=== PATIENT | male | born 1995 | race Caucasian/White ===

== ENCOUNTER 2024-11-08 15:47 | Observation (INO) | payer BC, SELFPAY ==
--- NOTE | ~2024-11-08 | XR_ITS ---
EXAMINATION: XR chest 1V portable Exam Date/Time: 11/08/2024 18:01 CDT HISTORY: Preop Comparison: 10/06/2016. RESULT: Lines, tubes, and devices: None. Lungs and pleura: Clear. Cardiomediastinal silhouette: Stable. Other: No acute osseous or upper abdominal finding. IMPRESSION: No acute cardiopulmonary process. Reviewed, dictated and finalized at location K.
--- OUTSIDE RECORDS SUMMARY | 2024-11-08 15:49 | XMS_ITS | Encounter Summary ---
Author Organization [facility] Address [address] [place] [address] Care Team Providers Care Field Party Manager Name Role Phone Ed Melendez MD Primary Care Provider [phone] Reason for Visit * Reason Onset Date Comments MEDICATION REFILL 12/28/2013 Encounter Details Date Type Department Care Team (Late st Contact Info) Description 12/28/2013 Refill [facility] Pediatrics - Diabetes Mgmt [address] [place] [address] Aleksandar Brar MD [address] [place] [id number] MEDICATION REFILL Social History Tobacco Use Types Packs/Day Years Used Date Smoking Tobacco: Never Alcohol Use Standard Drinks/Week Comments Not Asked 0 (1 standard drink = 0.6 oz pur e alcohol) Sex and Gender Information Value Date Recorded Sex Assigned at Not on file Legal Sex Male 11:46 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
--- OUTSIDE RECORDS SUMMARY | 2024-11-08 15:49 | XMS_ITS | Clinical Summary ---
Author Organization [facility] Address [address] [facility] [place] [address] Care Team Providers Care Hat And Cap Sewer Name Role Phone Ed Melendez MD Primary Care Provider [phone] Source Comments [facility],non-owned Affiliates and Associated Physician Practices is amultiple site organization consisting of ambulatory clinics and hospital sitesin [place], [place], [place] and [place]. This disclosure is being madepursuant to the Care Everywhere program and may not contain all information available regarding this patient. Last updated 18.[facility] Allergies Active Allergy Reactions Criticality Noted Date Comments Gluten 05/26/2011 Medications * Be aware that medications may not be up to date on this document. Alwaysverify current medications with the patient. blood glucose monitoring (FREESTYLE LITE) kitIndications: Diabetes mellitus type 1 (HCC) Use as directed for blood glucose monitoring. 1 Kit 0 1 Active lancets (FREESTYLE LITE)Indication s:Diabetes mellitus type 1 (HCC) Use for blood glucose monitoring 5-9 times/day. 200 Each 11 1 Active blood glucose (FREESTYLE LITE STRIPS) test stripIndication s:Diabetes mellitus type 1 (HCC) Use for blood glucose monitoring 5-9 times/day. 200 Strip 11 1 Active acetone,urine, (KETOSTIX) stripIndication s:Diabetes mellitus type 1 (HCC) Use as directed for urine ketone checks if blood sugar elevated or if ill. 50 Strip 3 1 Active insulin glargine (LANTUS) 100 UNIT/ML injectionIndica tions:Diabetes mellitus type 1 (HCC) Inject 36 units daily or as directed when off insulin pump. 2 Vial 3 10/21/201 1 Active glucagon (GLUCAGON EMERGENCY) injectionIndica tions:Diabetes mellitus type 1 (HCC) Use as directed for severe low blood sugar reaction. 2 Kit 1 2 Active insulin lispro (HUMALOG) vialIndications :Diabetes mellitus type 1 (HCC) To be used in insulin pump. Max daily dose 170 units 6 Vial 2 4 Active Active Problems Problem Noted Date Diagnosed Date Diabetes mellitus type 1 01/25/2012 Overview (06/29/2013): Dx: 2005 Insulin Pump ([place]): 2006 Transfer: 2010 Assessment & Plan (01/15/2014 2:47 PM CDT): 1) in order to optimize diabetes control you must check at least 4 blood sugars per day so that you can correct at least 4 times per day if needed 2) call as needed until first appointment with Adult ball point splitter 3) try proactive for acne 4) try to schedule appointment in 3-4 months, if nothing available schedule for 6 months and then call us to schedule one final appointment for 3 months Assessment & Plan (11/21/2013 9:39 AM CDT): Prior to Transition Visit #3: 1. Determine insurance coverage 2. Choose an Adult Starch Cooker and call their office to discuss items needed for transfer. 3. Begin to: log blood sugars, call diabetes office to review blood sugars, and fill prescriptions on your own (with parent's help, if needed). 4. Download ADA's Going to College With Diabetes: A Guide. Write down any questions and bring them to your next visit. Call [place] Public Aide to discuss the possibility of extending insurance. No changes in dosing per Dr. Brar. Keep up good work! Return to clinic 3 months. Assessment & Plan (04/10/2013 2:14 PM 911 DISPATCHER): 1) increase all ic ratios to 1:5 2) increase ISF to 15 3) call within the week if blood sugars do not return to target range 4) return in [address] Brar Before your next diabetes appointment: 1. Read Just For Teens, Surviving Sick Days, and Sick Day Guidelines. 2. Keep a logbook of your blood sugars and the corresponding times they are taken. 3. [place] blood sugars that are above your target range and highlight the ones that are below your target range. 4. Begin calling the Diabetes Nurse line yourself to review blood sugars [phone] #4. 5. Bring the logbook to your next appointment. 6. Begin to watch how your parents get your prescriptions refilled. Take part in the process! Begin calling in your own refills with your parents' assistance. 7. Write down any questions or topics that you want to discuss and bring them to your next visit. Assessment & Plan (01/19/2013 9:38 AM CDT): 1) resume checking blood sugars with all boluses and always check when you are low 2) call if blood sugars do not return to target range in two weeks 3) return in 3 months for [place] Immunizations Immunization Administration Dates Next Due INFLUENZA VACCINE 04/06/2013,02/09/2011 Social History Tobacco Use Types Packs/Day Years Used Date Smoking Tobacco: Never Alcohol Use Standard Drinks/Week Comments Not Asked 0 (1 standard drink = 0.6 oz pur e alcohol) Sex and Gender Information Value Date Recorded Sex Assigned at Not on file Legal Sex Male 11:46 AM 911 DISPATCHER Gender Identity Not on file Sexual Orientation Not on file Last Filed Vital Signs Vital Sign Reading Time Taken Comments Blood Pressure 124/82 01/15/2014 7:41 AM CDT Pulse 72 10/22/2010 9:19 AM CDT Temperature - - Respiratory Rate 16 10/22/2010 9:19 AM CDT Oxygen Saturation - - Inhaled Oxygen Concentration - - Weight 121.1 kg (267 lb) 01/15/2014 7:41 AM CDT Height 185.1 cm (6' 0.87) 01/15/2014 7:41 AM CD T Body Mass Index 35.35 01/15/2014 7:41 AM CDT Plan of Treatment Health Maintenance Due Date Last Done Comments HIV SCREENING 08/28/2010 HEPATITIS C SCREENING 08/24/2013 DIABETES-FOOT EXAM WITH MONOFILAMENT 08/28/2013 DIABETES-SERUM CREATININE 08/28/2013 DIABETES-HGB A1C 07/15/2014 01/15/2014, 09/2013, 04/06/2013, Additional history exists DTAP/TDAP/TD VACCINES (1 - Tdap) 08/28/2014 HEPATITIS B VACCINE (1 of 3 - 19+ 3-dose series) 08/28/2014 HPV VACCINE (1 - 3-dose SCDM series) 08/28/2022 COVID-19 VACCINE (1 - 2023- season) 2023 DEPRESSION SCREENING 04/26/2024 DIABETES - URINE PROTEIN SCREENING 04/26/2024 01/15/2014, 07/12/2012, 05/26/2011 INFLUENZA VACCINE (#1) 2024 04/06/2013, 2010 ZOSTER VACCINE (1 of 2) 08/28/2045 HIB VACCINE Aged Out No longer eligi ble based on patient's age to complete this topic MENINGOCOCCAL (Group B) VACCINE SHARED DECISION-MAKING Aged Out No longer eligible based on patient's age to complete this topic MENINGOCOCCAL GROUPS A/C/Y/W VACCINE Aged Out No longer eligible based on patient's age to complete this topic PNEUMOCOCCAL VACCINE Aged Out No long er eligible based on patient's age to complete this topic Procedures Procedure Name Priority Date/Time Associated Diagnosis Comments MICROALB/CREAT RATIO URINE RANDOM PANEL Routine 01/15/2014 7:56 AM CDT Diabetes mellitus type 1 HEMOGLOBIN A1C - POCT (IP) BEAKER Routine 01/15/2014 7:56 AM CDT Diabetes mellitus type 1 from Last 3 Months or Most Recently Relevant to Health Maintenance Results * (ABNORMAL) HEMOGLOBIN A1C - POCT (IP) ARJUN (01/15/2014 7:56 AM CDT) Hemoglobin A1c POCT 7.9(A) 3.4 - 6.1 % [facility] POCT TEST[facility] QC Verified Yes Yes [facility] PO CT TESTING Blood specimen (specimen) BLOOD SPECIMEN / Unknown 01/15/2014 7:56 AM CDT us Benji Pinto DOLL EYE SETTER-WANT AD RECEIVER LAB - POINT OF CARE ORD ERABLES Final Result [facility] [address] [place] [address], [facility] * (ABNORMAL) MICROALB/CREAT RATIO URINE RANDOM PANEL (01/15/2014 7:56 AM CDT) Creatinine Urine >400.00 mg/dL 01/15/2014 9:58 AM CDT [facility] Microalbumin Urine 5.4(H) <1.7 mg/dL 01/15/2014 9:58 AM CDT [facility] Microalbumin/Crea tinine Ratio <30 mg/g 01/15/2014 9:58 AM CDT [facility] Comment:Microalb/Creatinine Ratio= <14 Urine URINE SPECIMEN OBTAINED BY CLEAN CATCH PROCEDURE / Unknown 01/15/2014 7:56 AM CDT 01/15/2014 8:04 AM CDT Benji Millie DOLL EYE SETTER-WANT AD RECEIVER LAB - URINE CHEMISTRY O RDERABLES Final Result Performing Organization Address City/State/[facility] Co de Phone Number [facility] [place] [address] from Last 3 Months or Most Recently Relevant to Health Maintenance Insurance MEDICAID - [place] [employer] Care Teams Hat And Cap Sewer Relationship Specialty Start Date End Date Ed Melendez MD [address] [place] [phone] PCP - General 05/26/11
--- OUTSIDE RECORDS SUMMARY | 2024-11-08 15:49 | XMS_ITS | Patient Health Record ---
Author Organization [facility] Address [address] [place] [address] Care Team Providers Care Design/Animation Instructor Name Role Phone Diaz Price Unavailable [phone] Reason For Referral No Information Medications Medication SIG (Take, Route, Frequency, Duration) Notes Start Date End Date Status Wellbutrin XL 300 MG Oral 06/01/2018 Active Doxycycline Hyclate 100 MG Oral 06/01/2018 Active buPROPion HCl ER (XL) 300 MG Oral 06/01/2018 Active ENBREL SURECLICK 50 MG/ML (1 ML) SUBCUTANEOUS PEN INJECTOR *Reorder from [employer] for eRx and Interaction Alerts* 06/01/2018 Active DULoxetine HCl 30 MG Oral 06/01/2018 Active HumaLOG 100 UNIT/ML Subcutaneous 06/01/2018 Active Sertraline HCl 100 MG Oral 06/01/2018 Active Meloxicam 7.5 MG Oral 06/01/2018 Ac tive Plan Of Treatment No Information Insurance Providers Payer Name Payer Address Payer Phone Subscriber Number Group Number Insured Name Patient Relationship to Insured Coverage Start Date Coverage End Date [facility] P[facility] [address] [place] [address] [id number] LORAINE ESCOBAR Self - patient is the insured
--- OUTSIDE RECORDS SUMMARY | 2024-11-08 15:49 | XMS_ITS | Encounter Summary ---
Author Organization [facility] Address [address] [place] [address] Care Team Providers Care Weaving Machine Operator Name Role Phone Godfrey Moser MD Primary Care Provider Encounter Details Date Type Department Care Team (Latest Contact Info) Description 11/08/2024 Travel Social History Tobacco Use Types Packs/Day Years Used Date Smoking Tobacco: Never Smokeless Tobacco: Never Alcohol Use Standard Drinks/Week Comments Not Currently 0 (1 standard drink = 0.6 oz pur e alcohol) Sex and Gender Information Value Date Recorded Sex Assigned at Male 07/24/2024 7:06 AM CDT Legal Sex Male 7:07 PM CDT Gender Identity Not on file Sexual Orientation Not on file documented as of this encounter Plan of Treatment Not on file documented as of this encounter Visit Diagnoses Not on filedocumented in this encounter Care Teams Weaving Machine Operator Relationship Specialty Start Date End Date Godfrey Moser MD [address] [place] [phone] PCP - General FAMILY PRACTICE 07/24/24 documented as of this encounter
--- OUTSIDE RECORDS SUMMARY | 2024-11-08 15:49 | XMS_ITS | Clinical Summary ---
Author Organization [address] Address [address] [place] [phone] Care Team Providers Care Frame Fixer Name Role Phone Ed Melendez MD Primary Care Provider [phone] Allergies Active Allergy Reactions Criticality Noted Date Comments Gluten Unknown 02/02/2018 Medications insulin lispro (HumaLOG) 100 unit/mL injection Inject under the skin 3 (three) times a day before meals. Active doxycycline (VIBRAMYCIN) 100 mg capsule Take 100 mg by mouth 2 (two) times a day. Active lisinopril (PRINIVIL,ZESTRI L) 20 mg tablet Take 20 mg by mouth daily. Active cholecalciferol (VITAMIN D-3) 1,000 unit Take 1,000 Units by mouth daily. Active Active Problems Problem Noted Date Diagnosed Date Lymphedema of lower extremity 02/02/2018 Assessment & Plan (02/02/2018 12:03 PM CDT): Wear knee high 20-30 mmHg support hose. Weight loss will improve lower extremity edema as well. 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 Gender Identity Not on file Sexual Orientation Not on file Obstetrics History Last Filed Vital Signs Vital Sign Reading Time Taken Comments Blood Pressure 120/56 02/02/2018 10:16 AM CDT Pulse - - Temperature - - Respiratory Rate - - Oxygen Saturation - - Inhaled Oxygen Concentration - - Weight 149.7 kg (330 lb) 02/02/2018 10:16 AM CDT Height 190.5 cm (6' 3) 02/02/2018 10:16 AM CDT Body Mass Index 41.25 02/02/2018 10:16 AM CDT Plan of Treatment Not on file Insurance [employer] ACCESS CHOICE Care Teams Frame Fixer Relationship Specialty Start Date End Date Ed Melendez MD [address] [place] [address] PCP - General Internal Medicine 01/18/18
--- OUTSIDE RECORDS SUMMARY | 2024-11-08 15:49 | XMS_ITS | Referral Summary ---
Author Organization [facility] [address] Address [address] [place] [phone] Care Team Providers Care Shore Worker Name Role Phone Ed Melendez MD Primary Care Provider [phone] Allergies Active Allergy Reactions Criticality Noted Date [...] controlled diabetes mellitus 11/10/2009 Celiac disease 11/10/2009 Social History Tobacco Use Types Packs/Day Years Used Date Smoking Tobacco: Never Smokeless Tobacco: Never Personal Safety Answer Date Recorded Getting School Help Needed Not on file 07/09 Sex and Gender Information Value Date Recorded Sex Assigned at Not on file Legal Sex Male 8:48 AM 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
--- OUTSIDE RECORDS SUMMARY | 2024-11-08 15:49 | XMS_ITS | Encounter Summary ---
Author Organization [facility] Address [address] [place] [address] Care Team Providers Care Tower Director Name Role Phone Godfrey Moser MD Primary Care Provider [phone] Reason for Referral * Imaging (Emergency) - Closed Specialty Diagnoses / Procedures Referred By Contac t Referred To Contact RADIOLOGY Diagnoses Abdominal pain Procedures CT ABD+PEL W CON CT ABD+PEL W CON Topher Dyer, LEONEL [address] [place] [phone] Phone: tel: fax: Referral ID Status Reason Start Date Expiration Date Visits Re quested Visits Authorized [id number] Closed 11/08/2024 01/06/2025 1 1 Reason for Visit * Imaging (Emergency) - Closed Specialty Diagnoses / Procedures Referred By Contac t Referred To Contact RADIOLOGY Diagnoses Abdominal pain Procedures CT ABD+PEL W CON CT ABD+PEL W CON Topher Dyer NP [address] [place] [phone] Phone: tel: fax: Referral ID Status Reason Start Date Expiration Date Visits Re quested Visits Authorized [id number] Closed 11/08/2024 01/06/2025 1 1 Encounter Details Date Type Department Care Team (Late st Contact Info) Description 11/08/2024 11:02 AM CDT Hospital Encounter [facility] [address] [place] [address] Topher Dyer, LEONEL [address] [place] [phone] Arrived Social History Tobacco Use Types Packs/Day Years [...] on file documented as of this encounter Procedures Procedure Name Priority Date/Time Associated Diagnosis Comments CT ABD+PEL W CON STAT 11/08/2024 11:4 1 AM CDT Abdominal pain documented in this encounter Results * CT ABD+PEL W CON (11/08/2024 11:41 AM CDT) Anatomical Region Laterality Modality Abdomen Computed Tomogra phy 11/08/2024 11:4 8 AM CDT Impressions 11/08/2024 11:52 AM CDT IMPRESSION: 1. Acute uncomplicated appendicitis. 2. Small fat-containing umbilical hernia. Ordered By: TOPHER DYER Interpreted By: Magdy Loomis MD, 11/08/2024 11:48 AM Narrative 11/08/2024 11:52 AM CDT [address] [place] [address] Examination: CT of the abdomen and pelvis with contrast. Exam time: 1142 hours. Clinical history: Abdominal pain for approximately one week. Comparison: None. Technique: Following the administration of intravenous contrast, spiral scanning was performed through the abdomen and pelvis. Coronal and sagittal reconstructions were performed from the data set. A dose lowering technique was used for this procedure, which may include, but is not limited to, dose reduction techniques, automated exposure control, the use of iterative reconstruction and ALARA/Image Gently techniques. Findings: There is some image degradation from beam hardening artifact secondary to patient body habitus. The lung bases are clear. No pleural effusions are seen. The liver, spleen, gallbladder, pancreas, adrenals and kidneys appear unremarkable. The urinary bladder appears unremarkable. The appendix is visible (images [id number]). It is mildly dilated, up to 8 mm. There is perhaps mild mural hyperemia. There is stranding in the periappendiceal fat. The appearance is consistent with acute appendicitis. No abscess or other complication is identified. There is no ascites, free air, lymphadenopathy or bowel distention. The caliber of the abdominal aorta is normal. There is a small fat-containing umbilical hernia. Procedure Note Magdy Loomis MD - 11/08/[address] [place] [id number] [facility] [place] [address] Examination: CT of the abdomen and pelvis with contrast. Exam time: 1142 hours. Clinical history: Abdominal pain for approximately one week. Comparison: None. Technique: Following the administration of intravenous contrast, spiralscanning was performed through the abdomen and pelvis. Coronal andsagittal reconstructions were performed from the data set. A dose loweringtechnique was used for this procedure, which may include, but is notlimited to, dose reduction techniques, automated exposure control, the useof iterative reconstruction and ALARA/Image Gently techniques. Findings: There is some image degradation from beam hardening artifactsecondary to patient body habitus. The lung bases are clear. No pleuraleffusions are seen. The liver, spleen, gallbladder, pancreas, adrenals andkidneys appear unremarkable. The urinary bladder appears unremarkable. Theappendix is visible (images [id number]). It is mildly dilated, up to 8 mm.There is perhaps mild mural hyperemia. There is stranding in theperiappendiceal fat. The appearance is consistent with acute appendicitis.No abscess or other complication is identified. There is no ascites, freeair, lymphadenopathy or bowel distention. The caliber of the abdominalaorta is normal. There is a small fat-containing umbilical hernia. IMPRESSION: 1. Acute uncomplicated appendicitis. 2. Small fat-containing umbilical hernia. Ordered By: TOPHER DYER Interpreted By: Magdy Loomis MD, 11/08/2024 11:48 AM Topher Dyer WOODWORKING MACHINE SETTER CT Fin al Result documented in this encounter Visit Diagnoses Diagnosis Abdominal pain Abdominal pain, unspecified site documented in this encounter Administered Medications Inactive Administered Medications - up to 3 most recent administrations Medication Order MAR Action Action Date Dose Rate Site iopamidol (ISOVUE-370) 76 % injection 95 mL 95 mL, Intravenous, IMG once as needed, Contrast, 1 dose, Starting on Wed11/08/24 at 1140, Until Wed11/08/24 at 1141 Given 11/08/2024 11:41 AM CDT 95 mLs documented in this encounter Care Teams Tower Director Relationship Specialty Start Date End Date Godfrey Moser MD [address] [place] [phone] PCP - General FAMILY PRACTICE 07/24/24 documented as of this encounter
--- OUTSIDE RECORDS SUMMARY | 2024-11-08 15:49 | XMS_ITS | Clinical Summary ---
Author Organization [facility] Address [address] [place] [address] Care Team Providers Care Neckties Painter Name Role Phone Godfrey Moser MD Primary Care Provider [phone] Allergies Active Allergy Reactions Criticality Noted Date Comments Escitalopram Shakiness 07/24/2024 Medications Cholecalciferol (VITAMIN D3) 25 MCG (1000 UT) Cap Take 1,000 Units by mouth daily. Active lisinopril (PRINIVIL) 20 MG tablet Take 1 tablet (20 mg total) by mouth daily. Active insulin aspart (NOVOLOG) 100 UNIT/ML injection (PEN) Inject into the skin 4 (four) times daily before meals and nightly. Active insulin glargine (SEMGLEE) 100 UNIT/ML injection (VIAL) Inject 60 Units into the skin nightly at bedtime. Active lovastatin (MEVACOR) 40 MG tablet Take 1 tablet (40 mg total) by mouth daily with supper. Active Semaglutide (OZEMPIC, 0.25 OR 0.5 MG/DOSE, SC) Inject 0.25 mg into the skin once a week. Active busPIRone (BUSPAR) 30 MG tablet Take 1 tablet (30 mg total) by mouth 2 (two) times daily. Active lisinopril-hydr oCHLOROthiazide (ZESTORETIC) 10-12.5 MG tablet Take 1 tablet by mouth daily. Active Encounters Date Type Department Care Team Description 11/08/2024 11:02 AM CDT Hospital Encounter [place] [facility] [address] [address] Topher Dyer NP Arrived 11/08/2024 Travel from Last 3 Months Family History Medical History Relation Comments Glaucoma Mother Relation Status Comments Mother Alive Social History Tobacco Use Types Packs/Day Years Used Date Smoking Tobacco: Never Smokeless Tobacco: Never Tobacco Cessation:Counseling Given: Not Answered Alcohol Use Standard Drinks/Week Comments Not Currently 0 (1 standard drink = 0.6 oz pur e alcohol) Sex and Gender Information Value Date Recorded Sex Assigned at Male 07/24/2024 7:06 AM CDT Legal Sex Male 7:07 PM CDT Gender Identity Not on file Sexual Orientation Not on file Last Filed Vital Signs Vital Sign Reading Time Taken Comments Blood Pressure 139/73 07/24/2024 9:30 AM CDT Pulse 110 07/24/2024 6:37 AM CDT Temperature 36.1 C (96.9 F) 07/24/2024 6:40 AM CDT Respiratory Rate 16 07/24/2024 6:37 AM CDT Oxygen Saturation 95% 07/24/2024 9:30 AM CDT Inhaled Oxygen Concentration - - Weight 190.1 kg (419 lb) 07/24/2024 6:37 AM CDT Height 188 cm (6' 2) 07/24/2024 6:37 AM CDT Body Mass Index 53.8 07/24/2024 6:37 AM CDT Plan of Treatment Health Maintenance Due Date Last Done Comments Annual Physical 08/28/1998 HPV Vaccines (3 - Male 3-dos e series) 02/15/2012 11/23/2011, 11/20/2010, 09/18/2010 Hepatitis C 08/28/2013 Hepatitis B Vaccines (1 of 3 - 19+ 3-dose series) 08/28/2014 DTaP, Tdap and Td Vaccines ( 4 - Tdap) 11/27/2019 11/26/2009, 10/06/2006, 11/25/2000 COVID-19 Vaccine (2023-2 5 season) 2023 Meningococcal Vaccine Aged Out 01/20/2018 , 01/16/2015 No longer eligible based on patient's age to complete this topic Pneumococcal Vaccine: Pediatrics (0 to 5 Years) and At-Risk Patients (6 to 49 Years) Aged Out 01/20/2018 No longer eligible b ased on patient's age to complete this topic Meningococcal B Vaccine Aged Out No l onger eligible based on patient's age to complete this topic RSV Immunizations Under 20 Months Aged Out No longer eligible b ased on patient's age to complete this topic Procedures Procedure Name Priority Date/Time Associated Diagnosis Comments CT ABD+PEL W CON STAT 11/08/2024 11:4 1 AM CDT Abdominal pain from Last 3 Months Results * CT ABD+PEL W CON (11/08/2024 11:41 AM CDT) Anatomical Region Laterality Modality Abdomen Computed Tomogra phy 11/08/2024 11:4 8 AM CDT Impressions 11/08/2024 11:52 AM CDT IMPRESSION: 1. Acute uncomplicated appendicitis. 2. Small fat-containing umbilical hernia. Ordered By: TOPHER DYER Interpreted By: Magdy Loomis MD, 11/08/2024 11:48 AM Narrative 11/08/2024 11:52 AM CDT [address] [place] [address] Examination: CT of the abdomen and pelvis [...] Procedure Note Magdy Loomis MD - 11/08/[address] [place] [id number] [facility] [place] [address] Examination: CT of the abdomen and pelvis [...] By: Magdy Loomis MD, 11/08/2024 11:48 AM us Topher Dyer MINIATURE MODEL MAKER CT Fin al Result from Last 3 Months Insurance [facility] Care Teams Neckties Painter Relationship Specialty Start Date End Date Godfrey Moser MD [address] [place] [phone] PCP - General FAMILY PRACTICE 07/24/24
[2024-11-08 15:56] VITALS: BP 152/106; PULSE 99; RESP 16; TEMP 37.1; O2SAT 98
[2024-11-08 16:41] LABS: Hematocrit 43.6 % (42.0-52.0); Hemoglobin 14.0 g/dL (14.0-18.0); Immature Granulocyte Percent A 0.4 % (0-0.5); Lymphocytes Absolute Auto 1.81 K/mm3 (0.9-3.2); Mean Corpuscular HGB Conc 32.1 g/dl (32-36); Mean Corpuscular Hemoglobin 26.6 pg (26-34); Mean Corpuscular Volume 82.7 fl (80-100); Nucleated Red Blood Cells Absolute Auto 0.000 K/mm3 (0.0-0.012); Nucleated Red Blood Cells Perc 0.0 % (0.0-0.2); Platelet Count Result 300 k/mm3 (150-375); Red Blood Count 5.27 M/mm3 (4.6-6.20); White Blood Count 7.6 K/mm3 (4.5-10.0)
--- OUTSIDE RECORDS SUMMARY | 2024-11-08 16:49 | XMS_ITS | Clinical Summary ---
Author Organization [facility] Address [address] [place] [address] Care Team Providers Care Guardian Ad Litem Name Role Phone Godfrey Moser MD Primary Care Provider Allergies Active Allergy Reactions Criticality Noted Date [...] Description 11/08/2024 11:02 AM CDT Hospital Encounter [place] [facility] [address] [place] [address] Topher Dyer NP Arrived 11/08/2024 Travel from [...] 11:48 AM Narrative 11/08/2024 11:52 AM CDT [address] [place] [address] Examination: CT of the abdomen and pelvis [...] Procedure Note Magdy Loomis MD - 11/08/2024 [place] [id number] [facility] [place] [address] Examination: CT of the abdomen and pelvis [...] Magdy Loomis MD, 11/08/2024 11:48 AM us oTpher Dyer FOIL CUTTER CT Fin al Result from Last 3 Months Insurance [facility] Care Teams Guardian Ad Litem Relationship Specialty Start Date End Date Godfrey Moser MD [address] [place] [phone] PCP - General FAMILY PRACTICE 07/24/24
--- OUTSIDE RECORDS SUMMARY | 2024-11-08 16:49 | XMS_ITS | Encounter Summary ---
Author Organization [facility] Address [address] [facility] [place] [address] Care Team Providers Care Food Technology Teacher Name Role Phone Ed Melendez MD Primary Care Provider [phone] Reason for Visit * Reason Onset Date Comments MEDICATION REFILL 12/28/2013 Encounter Details Date Type Department Care Team (Late st Contact Info) Description 12/28/2013 Refill [facility] Pediatrics - Diabetes Mgmt [address] [place] [address] Aleksandar Brar MD [address] [place] [address] MEDICATION REFILL Social History Tobacco Use Types Packs/Day Years Used Date Smoking Tobacco: Never Alcohol Use Standard Drinks/Week Comments Not Asked 0 (1 standard drink = 0.6 oz pur e alcohol) Sex and Gender Information Value Date Recorded Sex Assigned at Not on file Legal Sex Male 11:46 AM BAGGING SALVAGER Gender Identity Not on file Sexual Orientation Not on file documented as of this encounter Plan of Treatment Not on file documented as of this encounter Visit Diagnoses Diagnosis Diabetes mellitus type 1 (HCC) Type I (juvenile type) diabetes mellitus without mention of complication, not stated as uncontrolled documented in this encounter Care Teams Food Technology Teacher Relationship Specialty Start Date End Date Ed Melendez MD [address] [place] [phone] PCP - General 05/26/11 documented as of this encounter
--- OUTSIDE RECORDS SUMMARY | 2024-11-08 16:49 | XMS_ITS | Referral Summary ---
Author Organization [place] [address] Address [address] [place] [phone] Care Team Providers Care Orthopedic Mechanic Name Role Phone dE Melendez MD Primary Care Provider [phone] Allergies Active Allergy Reactions Criticality Noted Date [...] on file Legal Sex Male 8:48 AM HAND M[place]ICAN FOOD MAKER Gender Identity Not on file Sexual Orientation [...] file Insurance [employer] ACCESS CHOICE Care Teams Orthopedic Mechanic Relationship Specialty Start Date End Date Ed Melendez MD [address] [place] [address] PCP - General Internal Medicine 01/18/18
--- OUTSIDE RECORDS SUMMARY | 2024-11-08 16:49 | XMS_ITS | Encounter Summary ---
Author Organization [facility] Address [address] [place] [address] Care Team Providers Care Doctor Of Nurse Anesthesia Practice Name Role Phone Godfrey Moser MD Primary Care Provider [phone] Reason for Referral * Imaging (Emergency) - Closed Specialty Diagnoses / Procedures Referred By Contac t Referred To Contact RADIOLOGY Diagnoses Abdominal pain Procedures CT ABD+PEL W CON CT ABD+PEL W CON Topher Dyer, LEONEL [address] [place] [phone] Phone: tel: fax: Referral ID Status Reason Start Date Expiration Date Visits Re quested Visits Authorized [id number] Closed 11/08/2024 01/06/2025 1 1 Reason for Visit * Imaging (Emergency) - Closed Specialty Diagnoses / Procedures Referred By Contac t Referred To Contact RADIOLOGY Diagnoses Abdominal pain Procedures CT ABD+PEL W CON CT ABD+PEL W CON Topher Dyer NP [address] [place] [phone] Phone: tel: fax: Referral ID Status Reason Start Date Expiration Date Visits Re quested Visits Authorized [id number] Closed 11/08/2024 01/06/2025 1 1 Encounter Details Date Type Department Care Team (Late st Contact Info) Description 11/08/2024 11:02 AM CDT Hospital Encounter [place] [facility] [address] [place] [address] Topher Dyer, LEONEL [address] [place] [phone] Arrived Social History Tobacco Use Types Packs/Day [...] 11:48 AM Narrative 11/08/2024 11:52 AM CDT [address] [place] [address] Examination: CT of the abdomen and pelvis [...] Procedure Note Magdy Loomis MD - 11/08/2024 [place] [id number] [facility] [place] [address] Examination: CT of the abdomen and pelvis [...] Loomis MD, 11/08/2024 11:48 AM Topher Dyer VEGETABLE TESTER CT Fin al Result documented in this [...] mLs documented in this encounter Care Teams Doctor Of Nurse Anesthesia Practice Relationship Specialty Start Date End Date Godfrey Moser MD [address] [place] [phone] PCP - General FAMILY PRACTICE 07/24/24 documented as of this encounter
--- OUTSIDE RECORDS SUMMARY | 2024-11-08 16:49 | XMS_ITS | Clinical Summary ---
Author Organization [email or web address] Address [address] [facility] [place] [address] Care Team Providers Care Kick Plate Installer Name Role Phone Ed Melendez MD Primary Care Provider [phone] Source Comments [email or web address],non-owned Affiliates and Associated Physician Practices is amultiple site organization consisting of ambulatory clinics and hospital sitesin [place], [place], [place] and [place]. This disclosure is being madepursuant to the Care Everywhere program and may not contain all information available regarding this patient. Last updated 18.[email or web address] Allergies Active Allergy Reactions Criticality Noted Date [...] 01/25/2012 Overview (06/29/2013): Dx: 2005 Insulin Pump ([place]): 2006 Transfer: 2010 Assessment & Plan (01/15/2014 2:47 PM CDT): 1) in order to optimize diabetes control you must check at least 4 blood sugars per day so that you can correct at least 4 times per day if needed 2) call as needed until first appointment with Adult mechanic general operational test 3) try proactive for acne 4) try to schedule appointment in 3-4 months, if nothing available schedule for 6 months and then call us to schedule one final appointment for 3 months Assessment & Plan (11/21/2013 9:39 AM CDT): Prior to Transition Visit #3: 1. Determine insurance coverage 2. Choose an Adult Vp Respiratory and call their office to discuss items needed for transfer. 3. Begin to: log blood sugars, call diabetes office to review blood sugars, and fill prescriptions on your own (with parent's help, if needed). 4. Download ADA's Going to College With Diabetes: A Guide. Write down any questions and bring them to your next visit. Call [place] Public Aide to discuss the possibility of extending insurance. No changes in dosing per Dr. Brar. Keep up good work! Return to clinic 3 months. Assessment & Plan (04/10/2013 2:14 PM GRADUATE STUDENT INSTRUCTOR): 1) increase all ic ratios to 1:5 [...] the corresponding times they are taken. 3. Pray blood sugars that are above your target range and highlight the ones that are below your target range. 4. Begin calling the Diabetes Nurse line yourself to review blood sugars [phone] #4. 5. Bring the logbook to your [...] on file Legal Sex Male 11:46 AM GRADUATE STUDENT INSTRUCTOR Gender Identity Not on file Sexual Orientation [...] 01/15/2014 7:56 AM CDT us Benji Pinto FOREST FIRE PREVENTION MANAGER-BINGO CHECKER LAB - POINT OF CARE ORD ERABLES Final Result [facility] [address] [place] [address], [facility] * (ABNORMAL) MICROALB/CREAT RATIO URINE RANDOM PANEL [...] CDT 01/15/2014 8:04 AM CDT Benji Millie FOREST FIRE PREVENTION MANAGER-BINGO CHECKER LAB - URINE CHEMISTRY O RDERABLES Final Result Performing Organization Address City/State/[facility] Co de Phone Number [facility] [place] [address] from Last 3 Months or Most Recently Relevant to Health Maintenance Insurance MEDICAID - [place] [facility] Care Teams Kick Plate Installer Relationship Specialty Start Date End Date Ed Melendez MD [address] [place] [phone] PCP - General 05/26/11
--- OUTSIDE RECORDS SUMMARY | 2024-11-08 16:49 | XMS_ITS | Encounter Summary ---
Author Organization [facility] Address [address] [place] [address] Care Team Providers Care Securities Clerk Name Role Phone Godfrey Moser MD Primary Care Provider [phone] Encounter Details Date Type Department Care Team [...] on filedocumented in this encounter Care Teams Securities Clerk Relationship Specialty Start Date End Date Godfrey Moser MD [address] [place] [phone] PCP - General FAMILY PRACTICE 07/24/24 documented as of this encounter
--- OUTSIDE RECORDS SUMMARY | 2024-11-08 16:49 | XMS_ITS | Clinical Summary ---
Author Organization [address] Address [address] [place] [phone] Care Team Providers Care Renderer Name Role Phone Ed Melendez MD Primary Care Provider [phone] Allergies Active Allergy Reactions Criticality Noted Date [...] on file Legal Sex Male 8:48 AM CHIMNEY SWEEPER Gender Identity Not on file Sexual Orientation [...] Plan of Treatment Not on file Insurance [employer] ACCESS CHOICE Care Teams Renderer Relationship Specialty Start Date End Date Ed Melendez MD [address] [place] [address] PCP - General Internal Medicine 01/18/18
--- NOTE | 2024-11-08 16:55 | ED.GENADULT ---
HPI - General Adult General Chief complaint: Recheck/Abnormal Lab/Rx <ISSA Hutchison Last Filed: 11/08/24 17:40> Stated complaint: ct read showed appy <ISSA Hutchison Last Filed: 11/08/24 17:40> Time Seen by Provider: 11/08/24 16:24 <ISSA Hutchison Last Filed: 11/08/24 17:40> Source: patient <ISSA Hutchison Last Filed: 11/08/24 17:40> Mode of arrival: ambulatory <ISSA Hutchison Last Filed: 11/08/24 17:40> Limitations: no limitations <ISSA Hutchison Last Filed: 11/08/24 17:40> History of Present Illness HPI narrative: Patient is a 29-year-old male, with PMH of HTN, HLD, IDDM, depression/anxiety, who presents to the ED with report of acute appendicitis. Patient reports he has been on Ozempic recently and has been having pain throughout his upper abdomen and periumbilical /lower abd region over the past 1 week. He thought he was having a side effect from Ozempic. Also reports some intermittent nausea, denies vomiting. Was constipated last week, but has since had large bowel movement and diarrhea. Denies rectal bleeding, melena. He has seen his primary care doctor for this and had an outpatient CT scan of his abdomen/pelvis performed today which showed acute uncomplicated appendicitis. He was then referred to the ED for further evaluation. Patient denies fevers. Does not currently want anything for pain <ISSA Hutchison Last Filed: 11/08/24 17:40> Related Data Allergies/adverse reactions: Allergies Allergy/AdvReac Type Severity Reaction Status Date / Time gluten Allergy Intermediate rash, Verified 11/08/24 15:49 abdominal pain rt celiacs <ISSA Hutchison Last Filed: 11/08/24 17:40> Review of Systems Review of Systems: All systems reviewed & are unremarkable except as noted in HPI. <Lesley Mejia PA-C - Last Filed: 11/08/24 17:40> All systems reviewed & are unremarkable except as noted in HPI and below <Lesley Mejia PA-C - Last Filed: 11/08/24 17:40> Exam Narrative: GENERAL: Appears older than stated age, mildly disheveled, morbidly obese with BMI of 51.2, non-toxic, in no acute distress. HEAD: Normocephalic, atraumatic. RESPIRATORY: Airway patent, respirations nonlabored. Clear to auscultation bilaterally, no rales, rhonchi, wheezing. CARDIOVASCULAR: Regular rate and rhythm without murmurs, rubs, or gallops. ABDOMINAL: Soft, diffuse tenderness in periumbilical region, very mild tenderness in epigastric region. Nondistended. Normoactive BS. MUSCULOSKELETAL: Moves all extremities. No gross deformities. Venous stasis changes to bilateral lower extremities. SKIN: Warm, dry, normal color. NEURO: A&O X3. Speech clear. Cranial nerves II-XII grossly intact. Steady gait. No ataxic movements. PSYCHIATRIC: Appropriate mood and affect. Normal interaction. <Lesley Mejia PA-C - Last Filed: 11/08/24 17:40> Course REELING OPERATOR/PA Physician Supervision I agree with midlevel documentation; I performed the medical decision making component of this evaluation. <Annalise Ridley MD - Last Filed: 11/08/24 17:46> Vital Signs Vital signs: Vital Signs Temperature 98.8 F 11/08/24 15:56 Pulse Rate 99 11/08/24 15:56 Respiratory Rate 16 11/08/24 15:56 Blood Pressure 152/106 H 11/08/24 15:56 Pulse Oximetry 98 11/08/24 15:56 Temperature 98.8 F 11/08/24 15:56 Pulse Rate 99 11/08/24 15:56 Respiratory Rate 16 11/08/24 15:56 Blood Pressure 152/106 H 11/08/24 15:56 Pulse Oximetry 98 11/08/24 15:56 <Lesley Mejia PA-C - Last Filed: 11/08/24 17:40> Vital Signs Temperature 98.8 F 11/08/24 15:56 Pulse Rate 99 11/08/24 15:56 Respiratory Rate 16 11/08/24 15:56 Blood Pressure 152/106 H 11/08/24 15:56 Pulse Oximetry 98 11/08/24 15:56 Temperature 98.8 F 11/08/24 15:56 Pulse Rate 99 11/08/24 15:56 Respiratory Rate 16 11/08/24 15:56 Blood Pressure 152/106 H 11/08/24 15:56 Pulse Oximetry 98 11/08/24 15:56 <Annalise Ridley MD - Last Filed: 11/08/24 17:46> Medical Decision Making MDM Narrative Medical decision making narrative: Patient presented to ED with acute appendicitis. Has had intermittent lower abdominal/periumbilical pain over the past [address] scan today confirming acute appendicitis. Patient was able to bring CT reports with him to the ED, did not bring CT images. No perforation or abscess. Vital signs are stable upon arrival. Patient is afebrile here. Did not want anything for pain. Cbc without leukocytosis. White blood cell count 7.6. CMP fairly unremarkable. Kidney function is stable. Blood glucose 122. Normal LFTs and lipase. Lactic acid is mildly elevated to 2.4. Will initiate fluids and Zosyn. Discussed case with Dr. Bethea, general surgery, agrees w/ plan, does not need repeat imaging, clear liquids until midnight, NPO after midnight, admit under hospitalist. Discussed case with Sera CASTANEDA hospitalist, accepted patient for admission. Patient and family in agreement with plan. <Lesley Mejia PA-C - Last Filed: 11/08/24 17:40> Medical Records Medical records reviewed: Yes I reviewed the external patient's medical records. <Lesley Mejia PA-C - Last Filed: 11/08/24 17:40> Vital Signs Vital Signs: Vital Signs Temperature 98.8 F 11/08/24 15:56 Pulse Rate 99 11/08/24 15:56 Respiratory Rate 16 11/08/24 15:56 Blood Pressure 152/106 H 11/08/24 15:56 Pulse Oximetry 98 11/08/24 15:56 Temperature 98.8 F 11/08/24 15:56 Pulse Rate 99 11/08/24 15:56 Respiratory Rate 16 11/08/24 15:56 Blood Pressure 152/106 H 11/08/24 15:56 Pulse Oximetry 98 11/08/24 15:56 <Lesley Mejia PA-C - Last Filed: 11/08/24 17:40> Vital Signs Temperature 98.8 F 11/08/24 15:56 Pulse Rate 99 11/08/24 15:56 Respiratory Rate 16 11/08/24 15:56 Blood Pressure 152/106 H 11/08/24 15:56 Pulse Oximetry 98 11/08/24 15:56 Temperature 98.8 F 11/08/24 15:56 Pulse Rate 99 11/08/24 15:56 Respiratory Rate 16 11/08/24 15:56 Blood Pressure 152/106 H 11/08/24 15:56 Pulse Oximetry 98 11/08/24 15:56 <Annalise Ridley MD - Last Filed: 11/08/24 17:46> Lab Data Lab results reviewed: Yes I reviewed the patient's lab results. <Lesley Mejia PA-C - Last Filed: 11/08/24 17:40> Result diagrams: 11/08/24 16:31 11/08/24 16:31 <Lesley Mejia PA-C - Last Filed: 11/08/24 17:40> Labs: Lab Results 11/08/24 Range/Units 16:31 WBC 7.6 (4.5-10.0) K/mm3 RBC 5.27 (4.6-6.20) M/mm3 Hgb 14.0 (14.0-18.0) g/dL Hct 43.6 (42.0-52.0) % MCV 82.7 (80-100) fl MCH 26.6 (26-34) pg MCHC 32.1 (32-36) g/dl RDW 13.1 (11.5-14.5) % Plt Count 300 (150-375) k/mm3 MPV 9.7 (7.4-10.4) fl Immature Gran % (Auto) 0.4 (0-0.5) % Neut % (Auto) 67.0 (45.5-73.1) % Lymph % (Auto) 23.9 (18.3-44.2) % Yates % (Auto) 7.0 (2.6-8.5) % Eos % (Auto) 1.3 (0-4.4) % Baso % (Auto) 0.4 (0.2-1.2) % Lymph # (Auto) 1.81 (0.9-3.2) K/mm3 Yates # (Auto) 0.5 (0.1-0.6) K/mm3 Eos # (Auto) 0.1 (0-0.3) K/mm3 Baso # (Auto) 0.0 (0.0-0.1) K/mm3 Abs Immat Gran (auto) 0.03 (0.00-0.031) K/mm3 Absolute Neuts (auto) 5.1 (1.3-6.7) K/mm3 Absolute Nucleated RBC 0.000 (0.0-0.012) K/mm3 Nucleated RBC % 0.0 (0.0-0.2) % Sodium 140 (137-145) mmol/L Potassium 3.5 (3.4-5.0) mmol/L Chloride 106 (98-107) mmol/L Carbon Dioxide 24 (22-30) mmol/L Anion Gap 10 (4-12) mmol/L BUN 11 (9-20) mg/dL Creatinine 0.95 (0.7-1.3) mg/dL Estim Creat Clear Calc 174 ml/min Estimated GFR > 60 (59 - ) Glucose 122 H (65-110) mg/dL Lactic Acid 2.4 H (0.7-2.0) mmol/L Calcium 9.5 (8.4-10.2) mg/dL Total Bilirubin 0.3 (0.2-1.3) mg/dL AST 23 (17-59) U/L ALT 18 (6-50) U/L Alkaline Phosphatase 86 (38-126) U/L Total Protein 7.6 (6.3-8.2) g/dL Albumin 4.0 (3.5-5.1) g/dL Lipase 26 (23-300) U/L <Lesley Mejia PA-C - Last Filed: 11/08/24 17:40> Lab Results 11/08/24 Range/Units 16:31 WBC 7.6 (4.5-10.0) K/mm3 RBC 5.27 (4.6-6.20) M/mm3 Hgb 14.0 (14.0-18.0) g/dL Hct 43.6 (42.0-52.0) % MCV 82.7 (80-100) fl MCH 26.6 (26-34) pg MCHC 32.1 (32-36) g/dl RDW 13.1 (11.5-14.5) % Plt Count 300 (150-375) k/mm3 MPV 9.7 (7.4-10.4) fl Immature Gran % (Auto) 0.4 (0-0.5) % Neut % (Auto) 67.0 (45.5-73.1) % Lymph % (Auto) 23.9 (18.3-44.2) % Yates % (Auto) 7.0 (2.6-8.5) % Eos % (Auto) 1.3 (0-4.4) % Baso % (Auto) 0.4 (0.2-1.2) % Lymph # (Auto) 1.81 (0.9-3.2) K/mm3 Yates # (Auto) 0.5 (0.1-0.6) K/mm3 Eos # (Auto) 0.1 (0-0.3) K/mm3 Baso # (Auto) 0.0 (0.0-0.1) K/mm3 Abs Immat Gran (auto) 0.03 (0.00-0.031) K/mm3 Absolute Neuts (auto) 5.1 (1.3-6.7) K/mm3 Absolute Nucleated RBC 0.000 (0.0-0.012) K/mm3 Nucleated RBC % 0.0 (0.0-0.2) % Sodium 140 (137-145) mmol/L Potassium 3.5 (3.4-5.0) mmol/L Chloride 106 (98-107) mmol/L Carbon Dioxide 24 (22-30) mmol/L Anion Gap 10 (4-12) mmol/L BUN 11 (9-20) mg/dL Creatinine 0.95 (0.7-1.3) mg/dL Estim Creat Clear Calc 174 ml/min Estimated GFR > 60 (59 - ) Glucose 122 H (65-110) mg/dL Lactic Acid 2.4 H (0.7-2.0) mmol/L Calcium 9.5 (8.4-10.2) mg/dL Total Bilirubin 0.3 (0.2-1.3) mg/dL AST 23 (17-59) U/L ALT 18 (6-50) U/L Alkaline Phosphatase 86 (38-126) U/L Total Protein 7.6 (6.3-8.2) g/dL Albumin 4.0 (3.5-5.1) g/dL Lipase 26 (23-300) U/L <Annalise Ridley MD - Last Filed: 11/08/24 17:46> Discharge Plan Discharge Clinical Impression: Acute appendicitis Qualifiers: Acute appendicitis type: with localized peritonitis Appendicitis gangrene presence: without gangrene Appendicitis perforation presence: without perforation Appendicitis abscess presence: without abscess Qualified Code(s): K35.30 - Acute appendicitis with localized peritonitis, without perforation or gangrene <Lesley Mejia PA-C - Last Filed: 11/08/24 17:40> Patient Disposition: Still a Patient <Lesley Mejia PA-C - Last Filed: 11/08/24 17:40> Condition: Stable <Lesley Mejia PA-C - Last Filed: 11/08/24 17:40> Patient Language: Romansh <Lesley Mejia PA-C - Last Filed: 11/08/24 17:40> [facility]Primary Care Provider[facility] - <Lesley Mejia PA-C - Last Filed: 11/08/24 17:40>
[2024-11-08 17:02] LABS: Alanine Aminotransferase 18 U/L (6-50); Albumin Level 4.0 g/dL (3.5-5.1); Alkaline Phosphatase 86 U/L (38-126); Anion Gap 10 mmol/L (4-12); Aspartate Amino Transferase 23 U/L (17-59); Bilirubin,Total 0.3 mg/dL (0.2-1.3); Blood Urea Nitrogen 11 mg/dL (9-20); Calcium 9.5 mg/dL (8.4-10.2); Carbon Dioxide 24 mmol/L (22-30); Chloride 106 mmol/L (98-107); Estimated CRCL calculation 174 ml/min; Estimated Glomerular Filt Rate > 60; Glucose 122 mg/dL (65-110); Potassium 3.5 mmol/L (3.4-5.0); Sodium 140 mmol/L (137-145); Total Protein 7.6 g/dL (6.3-8.2)
[2024-11-08 17:13] LABS: Lipase 26 U/L (23-300)
[2024-11-08] MEDS: PIPERACILLIN/TAZOBACTAM SOD 3.375 GM in SODIUM CHLORIDE 0.9% IV 50 ML 100 ML IVPB ×2 (17:27→23:20)
[2024-11-08] MEDS: SODIUM CHLORIDE 0.9% IV 1,000 ML 999 ML IV CONT (17:28)
--- NOTE | 2024-11-08 17:56 | P.HP_ITS ---
H&P: HPI History of Present Illness Date/Time: 11/08/24 17:56 Chief Complaint: Appendicitis Narrative: 29-year-old male with type 1 diabetic, hypertension hyperlipidemia and obesity on Ozempic presents the hospital with appendicitis. Patient has been having nausea of vomiting and abdominal pain for the past we thought it was due to Ozempic so he went to his PCP who ordered a CT scan. The patient was called t ruperto and told to go to the emergency room for acute uncomplicated appendicitis. Surgery states that the patient does not need to have another CT while here. Patient states that his last shot was something was over week ago. Lab work shows glucose of 122, lactic acid 2.4, chest x-ray no acute process and EKG pending. Review of Systems Review of Systems: 12 systems were reviewed and are negativ e except for as per HPI. [facility] Past Medical History Medical History (Updated 11/08/24 @ 22:07 by Sera Jacobson APRN) Depression Hyperlipidemia Hypertension Type 1 diabetic ketoacidosis with coma Family History Family History (Updated 11/08/24 @ 19:18 by Chris Mcghee, HALLIE) Grandparent Diabetes mellitus Grandparent Diabetes mellitus Grandparent Heart failure Social History Social History Smoking status: Never smoker Alcohol intake: never Substance use: never Do You Feel Safe in your Home?: Yes Lack of Transportation: No Lack of Food: Never True Current Housing: I Have Housing Concerned About Future Housing: No Difficulty Paying Gas/Electric Bills: No Difficulty Paying for Meds: No Currently Unemployed: No Education: Associate Degree Difficulty w/ Childcare or Family Care: No Spiritual care concerns: No Meds Home Medications and Allergies Home Medications ?Medication ?Instructions ?Recorded ?Confirmed ?Type buspirone 10 mg tablet 10 mg PO .Twice Daily 11/08/24 11/08/24 History chlorthalidone 25 mg tablet 25 mg PO DAILY 11/08/24 11/08/24 History citalopram 40 mg tablet 40 mg PO DAILY 11/08/24 11/08/24 History ergocalciferol (vitamin D2) 1,250 1,250 mcg PO WEEKLY 11/08/24 11/08/24 History mcg (50,000 unit) capsule insulin aspart U-100 100 unit/mL 80 unit subcut AC Type 1 DM 11/08/24 11/08/24 History subcutaneous solution (Novolog U-100 Insulin aspart) insulin glargine-yfgn 100 unit/mL 60 unit subcut QPM 11/08/24 11/08/24 History (3 mL) subcutaneous pen lisinopril 30 mg tablet 30 mg PO DAILY 11/08/24 11/08/24 History lovastatin 40 mg tablet 40 mg PO DAILY 11/08/24 11/08/24 History pen needle, diabetic 31 gauge x 11/08/24 11/08/24 History 1/4 (TRUEplus Pen Needle) Allergies Allergy/AdvReac Type Severity Reaction Status Date / Time gluten Allergy Intermediate rash, Verified 11/08/24 15:49 abdominal pain rt celiacs Vital Signs Vital Signs - 24 hr 11/08/24 15:56 Temperature 98.8 F Pulse Rate 99 Respiratory Rate 16 Blood Pressure 152/106 H Pulse Oximetry 98 Exam Narrative: General: well appearing, appears stated age. HEENT: normocephalic, atraumatic. Mucous membranes moist. EOMI, PERRLA, bilateral sclera anicteric, no conjunctival injection. Neck supple without JVD, lymphadenopathy, or bruit. Respiratory: clear to ascultation bilaterally. No rales/rhonic/wheezes. Cardiovascular: Regular rate and rhythm, normal S1-S2 upon ascultation. No murmurs, rubs, or clicks. PMI is nondisplaced, capillary refill less than 3 second. Abdomen: Soft, round, no pulsatile masses, nondistended and nontender. No rebound, no guarding. No CVA tenderness, no hepatosplenomegaly. Bowel sounds present to all four quadrants. No high pitch or tinkling sounds, resonant to percussion. Extremities: No cyanosis, clubbing, or edema present. Pulses are palpable 2/2. Active ROM to all four extremities. Neuro: Alert and orientated x 4. PERRLA. Cranial nerves 2-12 intact without foc al deficit. Skin: Warm, dry, and intact, without rash, erythema, or lesion. Psych: pleasant, cooperative, normal speech, normal affect, no hallucinations, no dysarthia H&P: Results Labs Labs: Short CBC 11/08/24 Range/Units 16:31 WBC 7.6 (4.5-10.0) K/mm3 Hgb 14.0 (14.0-18.0) g/dL Hct 43.6 (42.0-52.0) % Plt Count 300 (150-375) k/mm3 BMP 11/08/24 16:31 Sodium 140 Potassium 3.5 Chloride 106 Carbon Dioxide 24 BUN 11 Creatinine 0.95 Glucose 122 H Calcium 9.5 Liver Function 11/08/24 Range/Units 16:31 Total Bilirubin 0.3 (0.2-1.3) mg/dL AST 23 (17-59) U/L ALT 18 (6-50) U/L Alkaline Phosphatase 86 (38-126) U/L Albumin 4.0 (3.5-5.1) g/dL Assessment and Plan Assessment and plan (1) Acute appendicitis: Qualifiers: Acute appendicitis type: with localized peritonitis Appendicitis abscess presence: without abscess Appendicitis gangrene presence: without gangrene Appendicitis perforation presence: without perforation Qualified Code(s): K35.30 - Acute appendicitis with localized peritonitis, without perforation or gangrene Code(s): K35.80 - Unspecified acute appendicitis Status: Acute Assessment and Plan: On outside CT Surgery consulted plan for OR tomorrow Clear liquid diet now and NPO midnight IVF for hydration IV Zosyn A.m. labs Chest x-ray no acute process EKG pending Last does infection on on October 31 (2) Obesity: Code(s): E66.9 - Obesity, unspecified Status: Acute Assessment and Plan: Patient's last doses of Ozempic was on October 31 (3) Type 1 diabetic ketoacidosis with coma: Code(s): E10.11 - Type 1 diabetes mellitus with ketoacidosis with coma Status: Acute Assessment and Plan: At home patient takes 60 units of Lantus, and 1 unit of aspart for every 5 carbs which equals about 80 units a day 55 units of Lantus Q 6 hour Accu-Cheks High-dose sliding scale while NPO (4) Hypertension: Code(s): I10 - Essential (primary) hypertension Status: Acute Assessment and Plan: Continue lisinopril (5) Hyperlipidemia: Code(s): E78.5 - Hyperlipidemia, unspecified Status: Acute Assessment and Plan: Continue statin (6) Depression: Code(s): F32.A - Depression, unspecified Status: Acute Assessment and Plan: Continue citalopram and buspirone Quality VTE Prophylaxis VTE prophylaxis: mechanical ordered Hospitalist MIPS Advance Care Plan I have confirmed that the patient's Advanced Care Plan is present, code status is documented, or surrogate decision maker is listed in patient medical record.: Yes Medication Reconciliation I have utilized all available resources to obtain, update and review the patients current medications (includes all prescriptions, OTC, herbals, cannabis, and nutritional supplements).: Yes
--- NOTE | 2024-11-08 17:59 | ECG_ITS ---
Test Date: 2024-11-08 20:37:28 Measurements Intervals [place] Rate: 89 P: 46 AR: 146 QRS: 4 QRSD: 107 T: 3 QT: 368 QTc: 448 Interpretive Statements SINUS RHYTHM VOLTAGE CRITERIA FOR LVH, CONSIDER NORMAL VARIANT Electronically Signed On 11-08-2024 23:34:07 CDT by Mauricio Daniel D.O
[2024-11-08 19:11] VITALS: BMI 52.2
--- NOTE | 2024-11-08 19:15 | ADMGEN ---
This patient, Jame Cui, was admitted to [facility] Surg Room 330-02. Patient/family oriented to hospital policies and general routines including ID bracelet, bed and alarms, visiting hours, pain management, procedures, bathroom and other care routines, personal items, smoking policy, room service/diet, and visiting hours. Information on how to activate the Rapid Response Team has been discussed. Patient/Family are encouraged to report perceived risks to care and to ask questions if they do not understand what they are told or what they should do.
[2024-11-08 20:00] VITALS: PULSE 84; RESP 16; O2SAT 98
[2024-11-08 21:47] VITALS: BP 140/97; PULSE 84; RESP 16; TEMP 36.5; O2SAT 98
[2024-11-08] MEDS: SODIUM CHLORIDE 0.9% IV 1,000 ML 100 ML IV CONT (22:19)
[2024-11-08] MEDS: DEXTROSE 5%/0.9% SOD CHL 1,000 ML 40 ML IV CONT (23:20)
[2024-11-09] VITALS (15 sets, daily range): BP systolic 123–158; BP diastolic 82–99; PULSE 70–100; RESP 14–20; TEMP 35.9–37.1; O2SAT 95–100
[2024-11-09] MEDS: INSULIN GLARGINE (*BKC) 100 UNITS/ML 55 UNITS SUB-Q ×2 (01:07→21:13)
[2024-11-09] MEDS: PIPERACILLIN/TAZOBACTAM SOD 3.375 GM in SODIUM CHLORIDE 0.9% IV 50 ML 100 ML IVPB ×4 (05:53→23:53)
[2024-11-09 06:06] LABS: Hematocrit 39.7 % (42.0-52.0); Hemoglobin 12.8 g/dL (14.0-18.0); Immature Granulocyte Percent A 0.2 % (0-0.5); Lymphocytes Absolute Auto 2.25 K/mm3 (0.9-3.2); Mean Corpuscular HGB Conc 32.2 g/dl (32-36); Mean Corpuscular Hemoglobin 27.1 pg (26-34); Mean Corpuscular Volume 83.9 fl (80-100); Nucleated Red Blood Cells Absolute Auto 0.000 K/mm3 (0.0-0.012); Nucleated Red Blood Cells Perc 0.0 % (0.0-0.2); Platelet Count Result 256 k/mm3 (150-375); Red Blood Count 4.73 M/mm3 (4.6-6.20); White Blood Count 6.2 K/mm3 (4.5-10.0)
[2024-11-09 06:32] LABS: Anion Gap 6 mmol/L (4-12); Blood Urea Nitrogen 9 mg/dL (9-20); Calcium 8.8 mg/dL (8.4-10.2); Carbon Dioxide 25 mmol/L (22-30); Chloride 107 mmol/L (98-107); Estimated CRCL calculation 204 ml/min; Estimated Glomerular Filt Rate > 60; Glucose 165 mg/dL (65-110); Potassium 3.3 mmol/L (3.4-5.0); Sodium 138 mmol/L (137-145)
--- NOTE | 2024-11-09 09:49 | P.CONGS_ITS ---
Assessment and Plan Assessment and plan (1) Acute appendicitis: Qualifiers: Acute appendicitis type: with localized peritonitis Appendicitis abscess presence: without abscess Appendicitis gangrene presence: without gangrene Appendicitis perforation presence: without perforation Qualified Code(s): K35.30 - Acute appendicitis with localized peritonitis, without perforation or gangrene Code(s): K35.80 - Unspecified acute appendicitis Status: Acute Assessment and Plan: * CT scan at outlying facility showed acute uncomplicated appendicitis. He has been having symptoms for 9 days and does have some mild diffuse upper abdominal pain, which raises the concern for perforation. I have requested the CT results from [place] for review. Discussed both nonoperative and surgical treatment options with the patient and his mother in detail. We discussed the details of a laparoscopic appendectomy that would be done by Dr. Bethea under general anesthesia. Description of the procedure, risks, benefits, alternatives, and expected recovery were discussed. He wishes to proceed with surgery. We have him on the surgery schedule for today, but I will try to review his records once received from [place] this morning. I discussed the possibility of perforation with the patient and how this would change his treatment course. Continue IV Zosyn, IV fluids, and keep him NPO for surgery. (2) Type 1 diabetes mellitus: Code(s): E10.9 - Type 1 diabetes mellitus without complications Status: Chronic Assessment and Plan: * Management per Hospitalist. (3) Morbid obesity with BMI of 50.0-59.9, adult: Code(s): E66.01 - Morbid (severe) obesity due to excess calories; Z68.43 - Body mass index [BMI] 50.0-59.9, adult Status: Chronic (4) Hypertension: Code(s): I10 - Essential (primary) hypertension Status: Acute Plan I have discussed the patient's case and plan of care with Dr. Bethea. History of Present Illness Consult details Consult date: 11/09/24 Reason for consult: other (Acute appendicitis) Requesting physician: Sera Jacobson, GRETCHEN Narrative: This is a 29-year-old morbidly obese man with a history of type 1 diabetes mellitus, HTN, HLD, celiac disease, and depression, who we have been asked to see in surgical consultation for acute appendicitis. He reports an onset of generalized upper abdominal pain 9 days ago. Within a few days, his pain localized to the periumbilical region. He reports chronic nausea since starting Ozempic, which was unchanged when his pain began. His pain seemed to be aggravated by eating or drinking. He was initially concerned that his pain was related to a side effect of Ozempic or his gallbladder. He was also constipated, but had a good bowel movement on Wednesday and his symptoms did not improve. Yesterday, he noted increased lower abdominal pain when getting into the car and driving to the doctor's office. He went to his PCP and they ordered an outpatient CT scan of the abdomen and pelvis that was done at [facility] [place] in [place]. He was called with the report, which showed acute uncomplicated appendicitis and directed to the ED for treatment. Labs in our ER showed a white blood cell count of 7600 and lactic acid 2.4 with repeat down to 1.4. No CT scan for review in our electronic record or the paper chart. Records have been requested from [place]. He denies previous abdominal surgery. Review of Systems 2 Review of Systems: All systems reviewed & are unremarkable except as noted in HPI and below PMFSH Past Medical History Medical History Morbid obesity with BMI of 50.0-59.9, adult Celiac disease Type 1 diabetes mellitus Depression Hyperlipidemia Hypertension Surgical History Surgical History No pertinent past surgical history Family History Family History Grandparent Diabetes mellitus Grandparent Diabetes mellitus Grandparent Heart failure Social History Social History Smoking status: Never smoker Alcohol intake: never Substance use: never Do You Feel Safe in your Home?: Yes Lack of Transportation: No Lack of Food: Never True Current Housing: I Have Housing Concerned About Future Housing: No Difficulty Paying Gas/Electric Bills: No Difficulty Paying for Meds: No Currently Unemployed: No Education: Associate Degree Difficulty w/ Childcare or Family Care: No Spiritual care concerns: No Meds Home Medications and Allergies Home Medications ?Medication ?Instructions ?Recorded ?Confirmed ?Type buspirone 10 mg tablet 10 mg PO .Twice Daily 11/08/24 11/08/24 History chlorthalidone 25 mg tablet 25 mg PO DAILY 11/08/24 11/08/24 History citalopram 40 mg tablet 40 mg PO DAILY 11/08/24 11/08/24 History ergocalciferol (vitamin D2) 1,250 1,250 mcg PO WEEKLY 11/08/24 11/08/24 History mcg (50,000 unit) capsule insulin aspart U-100 100 unit/mL 80 unit subcut AC Type 1 DM 11/08/24 11/08/24 History subcutaneous solution (Novolog U-100 Insulin aspart) insulin glargine-yfgn 100 unit/mL 60 unit subcut QPM 11/08/24 11/08/24 History (3 mL) subcutaneous pen lisinopril 30 mg tablet 30 mg PO DAILY 11/08/24 11/08/24 History lovastatin 40 mg tablet 40 mg PO DAILY 11/08/24 11/08/24 History pen needle, diabetic 31 gauge x 11/08/24 11/08/24 History 1/4 (TRUEplus Pen Needle) Allergies Allergy/AdvReac Type Severity Reaction Status Date / Time gluten Allergy Intermediate rash, Verified 11/08/24 15:49 abdominal pain rt celiacs Vital Signs Vital Signs - 24 hr 11/08/24 15:56 11/08/24 20:00 11/08/24 21:47 Temperature 98.8 F 97.7 F Pulse Rate 99 84 84 Respiratory Rate 16 16 16 Blood Pressure 152/106 H 140/97 H Pulse Oximetry 98 98 98 Oxygen Delivery Room Air 11/09/24 05:20 Temperature 97.4 F L Pulse Rate 70 Respiratory Rate 20 Blood Pressure 158/99 H Pulse Oximetry 96 Oxygen Delivery Exam 2 Const: General: comfortable and no acute distress Nutritional Appearance: o bese morbidly obese Orientation/consciousness: patient oriented x3 HENMT: Head: normocephalic and atraumatic Ears: hearing grossly normal bilaterally Mouth: Yes moist mucous membranes Eyes: General: appearance normal, both eyes and all related structures P upils: Equal, round and reactive pupils present Neck: Neck: normal visual inspection and full ROM Resp: Effort & Inspection: no respiratory distress Auscultation: clear to auscultation bilaterally Cardio: Rate: regular rate Rhythm: regular rhythm Peripheral pulses: P eripheral pulses 2+ throughout GI: Inspection: non-distended, Pannus present, obesity, no scars, striae and no visible herniation GI Palp: Yes Soft to palpation, Yes Tenderness to palpation present (GI) (very mild diffuse tenderness in the upper abdomen, mostly tender in RLQ), No Guarding due to palpation present (GI) and No Rebound tenderness present Auscultation: normal bowel sounds Skin: General skin exam: normal color Neuro: General: moves all extremities and no focal motor deficits Speech: n ormal speech Motor exam (neuro): 5/5 motor strength present throughout Extrem: General: normal to inspection and no edema Psych: Mental Status: mental status grossly normal Attitude: cooperative Insight: Good insight present (Psych) Judgement: Good judgement present (Psych) Results Labs 11/09/24 05:44 11/09/24 05:44 Labs: Abnormal lab results 11/08/24 11/09/24 11/09/24 Range/Units 16:31 00:15 05:11 Hgb (14.0-18.0) g/dL Hct (42.0-52.0) % Potassium (3.4-5.0) mmol/L Glucose 122 H (65-110) mg/dL POC Capillary Glucose 146 H 162 H (65-105) mg/dl Lactic Acid 2.4 H (0.7-2.0) mmol/L 11/09/24 Range/Units 05:44 Hgb 12.8 L (14.0-18.0) g/dL Hct 39.7 L (42.0-52.0) % Potassium 3.3 L (3.4-5.0) mmol/L Glucose 165 H (65-110) mg/dL POC Capillary Glucose (65-105) mg/dl Lactic Acid (0.7-2.0) mmol/L Diabetes panel 11/08/24 11/09/24 Range/Units 16:31 05:44 Sodium 140 138 (137-145) mmol/L Potassium 3.5 3.3 L (3.4-5.0) mmol/L Chloride 106 107 (98-107) mmol/L Carbon Dioxide 24 25 (22-30) mmol/L BUN 11 9 (9-20) mg/dL Creatinine 0.95 0.81 (0.7-1.3) mg/dL Glucose 122 H 165 H (65-110) mg/dL Calcium 9.5 8.8 (8.4-10.2) mg/dL AST 23 (17-59) U/L ALT 18 (6-50) U/L Alkaline Phosphatase 86 (38-126) U/L Total Protein 7.6 (6.3-8.2) g/dL Albumin 4.0 (3.5-5.1) g/dL Calcium panel 11/08/24 11/09/24 Range/Units 16:31 05:44 Calcium 9.5 8.8 (8.4-10.2) mg/dL Albumin 4.0 (3.5-5.1) g/dL Pituitary panel 11/08/24 11/09/24 Range/Units 16:31 05:44 Sodium 140 138 (137-145) mmol/L Potassium 3.5 3.3 L (3.4-5.0) mmol/L Chloride 106 107 (98-107) mmol/L Carbon Dioxide 24 25 (22-30) mmol/L BUN 11 9 (9-20) mg/dL Creatinine 0.95 0.81 (0.7-1.3) mg/dL Glucose 122 H 165 H (65-110) mg/dL Calcium 9.5 8.8 (8.4-10.2) mg/dL Adrenal panel 11/08/24 11/09/24 Range/Units 16:31 05:44 Sodium 140 138 (137-145) mmol/L Potassium 3.5 3.3 L (3.4-5.0) mmol/L Chloride 106 107 (98-107) mmol/L Carbon Dioxide 24 25 (22-30) mmol/L BUN 11 9 (9-20) mg/dL Creatinine 0.95 0.81 (0.7-1.3) mg/dL Glucose 122 H 165 H (65-110) mg/dL Calcium 9.5 8.8 (8.4-10.2) mg/dL Total Bilirubin 0.3 (0.2-1.3) mg/dL AST 23 (17-59) U/L ALT 18 (6-50) U/L Alkaline Phosphatase 86 (38-126) U/L Total Protein 7.6 (6.3-8.2) g/dL Albumin 4.0 (3.5-5.1) g/dL All other labs normal. Imaging Additional studies: ITS Impressions Chest X-Ray 11/08/24 18:13 IMPRESSION: No acute cardiopulmonary process.
[2024-11-09] MEDS: CHLORTHALIDONE 25 MG TABLET PO (10:06)
[2024-11-09] MEDS: LOVASTATIN 20 MG TABLET 40 MG PO (10:06)
[2024-11-09] MEDS: CITALOPRAM HYDROBROMIDE 20 MG TABLET 40 MG PO (10:06)
[2024-11-09] MEDS: POTASSIUM CHLORIDE INJ 40 MEQ in SODIUM CHLORIDE 0.9% IV 500 ML 130 MEQ IVPB (11:06)
[2024-11-09] MEDS: INSULIN HUMAN REGULAR (*BKC) 100 UNITS/ML 15 UNITS IV PUSH (14:39)
[2024-11-09] MEDS: LACTATED RINGERS 1,000 ML 30 ML IV CONT ×2 (15:02→17:00)
--- NOTE | 2024-11-09 15:25 | WPDANESEPPF ---
Anes - Initial Pre Proc Eval Procedure: Operation Date: 11/09/24 15:30 Proposed Procedures p Laparoscopic Appendectomy - Ankit Bethea DO Date/Time: 11/09/24 15:25 Surgeon: Tyra Vieira MD Pre Op Diagnosis: acute appendicitis Patient Data Age: 29 Gender: M Height: 1.88 m Weight: 184.4 kg Last Vital Signs Temp 97.4 F L 11/09/24 14:00 Pulse 78 11/09/24 14:00 Resp 18 11/09/24 14:00 BP 145/88 H 11/09/24 14:00 Pulse Ox 97 11/09/24 14:00 O2 Del Method Room Air 11/09/24 08:00 Allergies Allergy/AdvReac Type Severity Reaction Status Date / Time gluten Allergy Intermediate rash, Verified 11/09/24 15:00 abdominal pain rt celiacs Home Medications ?Medication ?Instructions ?Recorded ?Confirmed ?Type buspirone 10 mg tablet 10 mg PO .Twice Daily 11/08/24 11/08/24 History chlorthalidone 25 mg tablet 25 mg PO DAILY 11/08/24 11/08/24 History citalopram 40 mg tablet 40 mg PO DAILY 11/08/24 11/08/24 History ergocalciferol (vitamin D2) 1,250 1,250 mcg PO WEEKLY 11/08/24 11/08/24 History mcg (50,000 unit) capsule insulin aspart U-100 100 unit/mL 80 unit subcut AC Type 1 DM 11/08/24 11/08/24 History subcutaneous solution (Novolog U-100 Insulin aspart) insulin glargine-yfgn 100 unit/mL 60 unit subcut QPM 11/08/24 11/08/24 History (3 mL) subcutaneous pen lisinopril 30 mg tablet 30 mg PO DAILY 11/08/24 11/08/24 History lovastatin 40 mg tablet 40 mg PO DAILY 11/08/24 11/08/24 History pen needle, diabetic 31 gauge x 11/08/24 11/08/24 History 1/4 (TRUEplus Pen Needle) Laboratory Tests 11/08/24 11/08/24 11/08/24 16:31 20:12 21:48 WBC 7.6 K/mm3 (4.5-10.0) RBC 5.27 M/mm3 (4.6-6.20) Hgb 14.0 g/dL (14.0-18.0) Hct 43.6 % (42.0-52.0) MCV 82.7 fl (80-100) MCH 26.6 pg (26-34) MCHC 32.1 g/dl (32-36) RDW 13.1 % (11.5-14.5) Plt Count 300 k/mm3 (150-375) MPV 9.7 fl (7.4-10.4) Immature Gran % (Auto) 0.4 % (0-0.5) Neut % (Auto) 67.0 % (45.5-73.1) Lymph % (Auto) 23.9 % (18.3-44.2) [place] % (Auto) 7.0 % (2.6-8.5) Eos % (Auto) 1.3 % (0-4.4) Baso % (Auto) 0.4 % (0.2-1.2) Lymph # (Auto) 1.81 K/mm3 (0.9-3.2) [place] # (Auto) 0.5 K/mm3 (0.1-0.6) Eos # (Auto) 0.1 K/mm3 (0-0.3) Baso # (Auto) 0.0 K/mm3 (0.0-0.1) Abs Immat Gran (auto) 0.03 K/mm3 (0.00-0.031) Absolute Neuts (auto) 5.1 K/mm3 (1.3-6.7) Absolute Nucleated RBC 0.000 K/mm3 (0.0-0.012) Nucleated RBC % 0.0 % (0.0-0.2) Sodium 140 mmol/L (137-145) Potassium 3.5 mmol/L (3.4-5.0) Chloride 106 mmol/L (98-107) Carbon Dioxide 24 mmol/L (22-30) Anion Gap 10 mmol/L (4-12) BUN 11 mg/dL (9-20) Creatinine 0.95 mg/dL (0.7-1.3) Estim Creat Clear Calc 174 ml/min Estimated GFR > 60 (59 - ) Glucose 122 H mg/dL (65-110) POC Capillary Glucose 91 mg/dl (65-105) Lactic Acid 2.4 H mmol/L 1.4 mmol/L (0.7-2.0) (0.7-2.0) Calcium 9.5 mg/dL (8.4-10.2) Total Bilirubin 0.3 mg/dL (0.2-1.3) AST 23 U/L (17-59) ALT 18 U/L (6-50) Alkaline Phosphatase 86 U/L (38-126) Total Protein 7.6 g/dL (6.3-8.2) Albumin 4.0 g/dL (3.5-5.1) Lipase 26 U/L (23-300) 11/09/24 11/09/24 11/09/24 00:15 05:11 05:44 WBC 6.2 K/mm3 (4.5-10.0) RBC 4.73 M/mm3 (4.6-6.20) Hgb 12.8 L g/dL (14.0-18.0) Hct 39.7 L % (42.0-52.0) MCV 83.9 fl (80-100) MCH 27.1 pg (26-34) MCHC 32.2 g/dl (32-36) RDW 13.1 % (11.5-14.5) Plt Count 256 k/mm3 (150-375) MPV 9.8 fl (7.4-10.4) Immature Gran % (Auto) 0.2 % (0-0.5) Neut % (Auto) 53.3 % (45.5-73.1) Lymph % (Auto) 36.3 % (18.3-44.2) [place] % (Auto) 7.6 % (2.6-8.5) Eos % (Auto) 2.1 % (0-4.4) Baso % (Auto) 0.5 % (0.2-1.2) Lymph # (Auto) 2.25 K/mm3 (0.9-3.2) [place] # (Auto) 0.5 K/mm3 (0.1-0.6) Eos # (Auto) 0.1 K/mm3 (0-0.3) Baso # (Auto) 0.0 K/mm3 (0.0-0.1) Abs Immat Gran (auto) 0.01 K/mm3 (0.00-0.031) Absolute Neuts (auto) 3.3 K/mm3 (1.3-6.7) Absolute Nucleated RBC 0.000 K/mm3 (0.0-0.012) Nucleated RBC % 0.0 % (0.0-0.2) Sodium 138 mmol/L (137-145) Potassium 3.3 L mmol/L (3.4-5.0) Chloride 107 mmol/L (98-107) Carbon Dioxide 25 mmol/L (22-30) Anion Gap 6 mmol/L (4-12) BUN 9 mg/dL (9-20) Creatinine 0.81 mg/dL (0.7-1.3) Estim Creat Clear Calc 204 ml/min Estimated GFR > 60 (59 - ) Glucose 165 H mg/dL (65-110) POC Capillary Glucose 146 H mg/dl 162 H mg/dl (65-105) (65-105) Lactic Acid Calcium 8.8 mg/dL (8.4-10.2) Total Bilirubin AST ALT Alkaline Phosphatase Total Protein Albumin Lipase 11/09/24 11/09/24 11:16 14:14 WBC RBC Hgb Hct MCV MCH MCHC RDW Plt Count MPV Immature Gran % (Auto) Neut % (Auto) Lymph % (Auto) [place] % (Auto) Eos % (Auto) Baso % (Auto) Lymph # (Auto) [place] # (Auto) Eos # (Auto) Baso # (Auto) Abs Immat Gran (auto) Absolute Neuts (auto) Absolute Nucleated RBC Nucleated RBC % Sodium Potassium Chloride Carbon Dioxide Anion Gap BUN Creatinine Estim Creat Clear Calc Estimated GFR Glucose POC Capillary Glucose 254 H mg/dl 311 H mg/dl (65-105) (65-105) Lactic Acid Calcium Total Bilirubin AST ALT Alkaline Phosphatase Total Protein Albumin Lipase Patient hx anesthesia problems: none Family hx anesthesia problems: none Results Review: All pre-operative results and documents have been reviewed as part of the pre-operative evaluation. [facility] Past Medical History Medical History Morbid obesity with BMI of 50.0-59.9, adult Celiac disease Type 1 diabetes mellitus Depression Hyperlipidemia Hypertension Surgical History Surgical History No pertinent past surgical history Family History Family History Grandparent Diabetes mellitus Grandparent Diabetes mellitus Grandparent Heart failure Social History Social History Smoking status: Never smoker Alcohol intake: never Substance use: never Do You Feel Safe in your Home?: Yes Lack of Transportation: No Lack of Food: Never True Current Housing: I Have Housing Concerned About Future Housing: No Difficulty Paying Gas/Electric Bills: No Difficulty Paying for Meds: No Currently Unemployed: No Education: Associate Degree Difficulty w/ Childcare or Family Care: No Spiritual care concerns: No Anes - Eval Final PreProcedure Day of Procedure 11/09/24 15:25 Patient weight: morbidly obese Lungs: normal air movement Airway: Mallampati scale class II Neurological: alert and oriented Last oral intake: >/= 8 hours ASA classification: IV Emergent: no Anesthetic plan: proceed Anesthesia type and monitoring: general ETT and standard monitoring Results Review: All pre-operative results and documents have been reviewed as part of the pre-operative evaluation. BMI 52, DM 1 since age 8yo, RAUL but noncompliant w CPAP. Pt received dextrose for fsbs 90s last pt, now in the 200-300, we will attempt to control perioperatively. Informed Consent: The patient's anesthetic plan and its attendant risks and benefits were discussed with the patient/family/POA. Questions were solicited and answers provided to the satisfaction of the patient/family/POA.
--- NOTE | 2024-11-09 15:29 | P.PNIM_ITS ---
Progress Note: A&P Assessment and Plan (1) Acute appendicitis: Qualifiers: Acute appendicitis type: with localized peritonitis Appendicitis abscess presence: without abscess Appendicitis gangrene presence: without gangrene Appendicitis perforation presence: without perforation Qualified Code(s): K35.30 - Acute appendicitis with localized peritonitis, without perforation or gangrene Code(s): K35.80 - Unspecified acute appendicitis Status: Acute Assessment and Plan: On outside CT Surgery consulted plan for OR tomorrow Clear liquid diet now and NPO midnight IVF for hydration IV Zosyn A.m. labs Chest x-ray no acute process EKG pending Last does infection on on October 31 (2) Obesity: Code(s): E66.9 - Obesity, unspecified Status: Acute Assessment and Plan: Patient's last doses of Ozempic was on October 31 (3) Type 1 diabetic ketoacidosis with coma: Code(s): E10.11 - Type 1 diabetes mellitus with ketoacidosis with coma Status: Deleted Assessment and Plan: At home patient takes 60 units of Lantus, and 1 unit of aspart for every 5 carbs which equals about 80 units a day 55 units of Lantus Q 6 hour Accu-Cheks High-dose sliding scale while NPO (4) Hypertension: Code(s): I10 - Essential (primary) hypertension Status: Acute Assessment and Plan: Continue lisinopril (5) Hyperlipidemia: Code(s): E78.5 - Hyperlipidemia, unspecified Status: Acute Assessment and Plan: Continue statin (6) Depression: Code(s): F32.A - Depression, unspecified Status: Acute Assessment and Plan: Continue citalopram and buspirone Plan patient is seen by surgery service and patient is scheduled for appendectomy later today, stats feeling, pain is control, will follow up after the surgery and will plan. Subjective Date/time seen: 11/09/24 15:29 Interval history: Appendicitis H&P-Narrative: 29-year-old male with type 1 diabetic, hypertension hyperlipidemia and obesity on Ozempic presents the hospital with appendicitis. Patient has been having nausea of vomiting and abdominal pain for the past we thought it was due to Ozempic so he went to his PCP who ordered a CT scan. The patient was called today and told to go to the emergency room for acute uncomplicated appendicitis. Surgery states that the patient does not need to have another CT while here. Patient states that his last shot was something was over week ago. patient is seen by surgery service and patient is scheduled for appendectomy later today, stats feeling, pain is control, will follow up after the surgery and will plan. Review of Systems Review of Systems: 12 systems were reviewed and are negativ e except for as per HPI. Exam Narrative: Morbidly obese Patient is comfortable, NAD HEENT: eyes are clear and none icteric LUNGS:CTA HEART: RR S1S2 ABD: BS+, Soft and nontender Lower extremities: no edema SKIN: nonjaundiced Neuro: grossly intact. Objective Data Vital Signs Vital Signs: Vital Signs - 24 hr 11/08/24 15:56 11/08/24 20:00 11/08/24 21:47 Temperature 37.1 C 36.5 C Pulse Rate 99 84 84 Respiratory Rate 16 16 16 Blood Pressure 152/106 H 140/97 H Pulse Oximetry 98 98 98 Oxygen Delivery Room Air 11/09/24 05:20 11/09/24 08:00 11/09/24 14:00 Temperature 36.3 C L 36.3 C L Pulse Rate 70 70 78 Respiratory Rate 20 20 18 Blood Pressure 158/99 H 145/88 H Pulse Oximetry 96 96 97 Oxygen Delivery Room Air Intake/Output Intake/Output: Intake & Output 11/06/24 11/07/24 11/08/24 11/09/24 23:59 23:59 23:59 23:59 Intake Total 1200 958 Balance 1200 958 Meds/Results Medications: Active Medications Generic Name Dose Route Start Last Admin Trade Name Freq PRN Reason Stop Dose Admin Acetaminophen 650 mg 11/08/24 17:26 Acetaminophen 325 Mg Tablet PO Q4H PRN Mild Pain (1-3) or Fever Hydrocodone Bitart/Acetaminophen 1 tab 11/08/24 17:59 Hydrocodone/Acetaminophen (*Crx) 5-325 Mg Tablet PO Q4H PRN Moderate Pain (4-6) Buspirone HCl 10 mg 11/09/24 09:00 11/09/24 10:06 Buspirone Hcl 10 Mg Tablet PO 10 mg BID ALEXANDRA Administration Chlorthalidone 25 mg 11/09/24 09:00 11/09/24 10:06 Chlorthalidone 25 Mg Tablet PO 25 mg DAILY ALEXANDRA Administration Citalopram Hydrobromide 40 mg 11/09/24 09:00 11/09/24 10:06 Citalopram Hydrobromide 20 Mg Tablet PO 40 mg DAILY ALEXANDRA Administration Dextrose 12.5 gm 11/08/24 17:26 Dextrose 50% 25 Gm/50 Ml Syringe IV PUSH PRN PRN Hypoglycemia Protocol Docusate Sodium 100 mg 11/09/24 09:00 11/09/24 10:06 Docusate Sodium 100 Mg Capsule PO Not Given BID ALEXANDRA Glucagon 1 mg 11/08/24 17:26 Glucagon For Inj 1 Mg Vial IM PRN PRN Hypoglycemia Protocol Glucose 15 gm 11/08/24 17:26 Glucose Oral Gel 15 Gm Of Glucse In 37.5 Gm Tube PO PRN PRN Hypoglycemia Protocol Hydralazine HCl 10 mg 11/08/24 19:16 Hydralazine Hcl 20 Mg/Ml Vial IV PUSH Q8H PRN Blood Pressure - High Piperacillin Sod/Tazobactam 50 mls @ 100 mls/hr 11/09/24 00:00 11/09/24 13:18 Sod 3.375 gm/ Sodium Chloride IVPB 100 mls/hr Q6H ALEXANDRA Administration Dextrose 1,000 mls @ 100 mls/hr 11/08/24 17:26 Dextrose 5% 1,000 Ml IVPB PRN PRN Hypoglycemia Protocol Dextrose/Sodium Chloride 1,000 mls @ 100 mls/hr 11/08/24 22:43 11/08/24 23:20 Dextrose 5%/0.9% Sod Chl IV CONT 40 mls/hr .Q10H ALEXANDRA Administration Lactated Ringer's 1,000 mls @ 30 mls/hr 11/09/24 15:05 11/09/24 15:02 Lr - Lactated Ringers Iv IV CONT 30 mls/hr .Q24H ALEXANDRA Administration Insulin Aspart 4 - 8 units 11/09/24 00:00 11/09/24 13:02 Insulin Aspart (*Bkc) 100 Units/Ml SUB-Q Not Given Q6HR [facility] Protocol Insulin Glargine 55 units 11/08/24 22:40 11/09/24 01:07 Insulin Glargine (*Bkc) 100 Units/Ml 0.3 units/kg (55 units) 55 units SUB-Q Administration [facility] Insulin Human Regular 15 units 11/09/24 15:28 Insulin Human Regular (*Bkc) 100 Units/Ml SUB-Q 11/09/24 15:29 ONCE ONE Lisinopril 30 mg 11/09/24 09:00 11/09/24 10:06 Lisinopril 10 Mg Tablet PO 30 mg DAILY ALEXANDRA Administration Lovastatin 40 mg 11/09/24 09:00 11/09/24 10:06 Lovastatin 20 Mg Tablet PO 40 mg DAILY ALEXANDRA Administration Morphine Sulfate 4 mg 11/08/24 17:26 Morphine Sulfate (*Crx) 4 Mg/Ml Inj IV PUSH Q2H PRN Pain Rated 7-10 Ondansetron HCl 4 mg 11/08/24 17:26 Ondansetron Inj 4 Mg/2 Ml Vial IV PUSH Q4H PRN Nausea Radiology Results: ITS Impressions Chest X-Ray 11/08/24 18:13 IMPRESSION: No acute cardiopulmonary process. Labs Labs: Laboratory Results - last 24 hr 11/08/24 11/08/24 11/08/24 16:31 20:12 21:48 WBC 7.6 RBC 5.27 Hgb 14.0 Hct 43.6 MCV 82.7 MCH 26.6 MCHC 32.1 RDW 13.1 Plt Count 300 MPV 9.7 Immature Gran % (Auto) 0.4 Neut % (Auto) 67.0 Lymph % (Auto) 23.9 [place] % (Auto) 7.0 Eos % (Auto) 1.3 Baso % (Auto) 0.4 Lymph # (Auto) 1.81 [place] # (Auto) 0.5 Eos # (Auto) 0.1 Baso # (Auto) 0.0 Abs Immat Gran (auto) 0.03 Absolute Neuts (auto) 5.1 Absolute Nucleated RBC 0.000 Nucleated RBC % 0.0 Sodium 140 Potassium 3.5 Chloride 106 Carbon Dioxide 24 Anion Gap 10 BUN 11 Creatinine 0.95 Estim Creat Clear Calc 174 Estimated GFR > 60 Glucose 122 H POC Capillary Glucose 91 Lactic Acid 2.4 H 1.4 Calcium 9.5 Total Bilirubin 0.3 AST 23 ALT 18 Alkaline Phosphatase 86 Total Protein 7.6 Albumin 4.0 Lipase 11/09/24 11/09/24 11/09/24 00:15 05:11 05:44 WBC 6.2 RBC 4.73 Hgb 12.8 L Hct 39.7 L MCV 83.9 MCH 27.1 MCHC 32.2 RDW 13.1 Plt Count 256 MPV 9.8 Immature Gran % (Auto) 0.2 Neut % (Auto) 53.3 Lymph % (Auto) 36.3 [place] % (Auto) 7.6 Eos % (Auto) 2.1 Baso % (Auto) 0.5 Lymph # (Auto) 2.25 [place] # (Auto) 0.5 Eos # (Auto) 0.1 Baso # (Auto) 0.0 Abs Immat Gran (auto) 0.01 Absolute Neuts (auto) 3.3 Absolute Nucleated RBC 0.000 Nucleated RBC % 0.0 Sodium 138 Potassium 3.3 L Chloride 107 Carbon Dioxide 25 Anion Gap 6 BUN 9 Creatinine 0.81 Estim Creat Clear Calc 204 Estimated GFR > 60 Glucose 165 H POC Capillary Glucose 146 H 162 H Lactic Acid Calcium 8.8 Total Bilirubin AST ALT Alkaline Phosphatase Total Protein Albumin Lipase 11/09/24 11/09/24 11:16 14:14 WBC RBC Hgb Hct MCV MCH MCHC RDW Plt Count MPV Immature Gran % (Auto) Neut % (Auto) Lymph % (Auto) [place] % (Auto) Eos % (Auto) Baso % (Auto) Lymph # (Auto) [place] # (Auto) Eos # (Auto) Baso # (Auto) Abs Immat Gran (auto) Absolute Neuts (auto) Absolute Nucleated RBC Nucleated RBC % Sodium Potassium Chloride Carbon Dioxide Anion Gap BUN Creatinine Estim Creat Clear Calc Estimated GFR Glucose POC Capillary Glucose 254 H 311 H Lactic Acid Calcium Total Bilirubin AST ALT Alkaline Phosphatase Total Protein Albumin Lipase Quality VTE Prophylaxis VTE prophylaxis: mechanical ordered
--- NOTE | 2024-11-09 15:31 | WPDHPUPDATE1 ---
History and Physical Update Update Date/Time: 11/09/24 15:31 History and Physical has been reviewed, including an updated exam of the patient. There are NO changes in the patient's condition. Risks, benefits, and alternatives have been discussed and questions answered. Patient agrees to proceed with procedure.
[2024-11-09] MEDS: INSULIN HUMAN REGULAR (*BKC) 100 UNITS/ML 15 UNITS SUB-Q (15:36)
[2024-11-09] MEDS: BUPIVACAINE/EPINEPHRINE 0.5% 50 ML VIAL 30 ML INFILTRATE (15:47)
--- NOTE | 2024-11-09 16:37 | S_PTH ---
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
--- NOTE | 2024-11-09 16:49 | P.OP_ITS ---
Procedure Note - Detailed Date of Procedure 11/09/24 Pre-op Diagnosis acute appendicitis Post-op Diagnosis Same Procedure Performed Laparoscopic appendectomy Surgeon Ankit Bethea, DO Anesthesia General and Local (0.5% bupivicaine with epinephrine) Indications This is a 29-year-old man who presented to the emergency department on 11/08/2024 with lower abdominal pain that started a little over 1 week ago. He had seen his PCP and was sent for an outpatient CT which was performed in [place]. He was informed of the CT results which showed evidence of acute appendicitis and was then instructed to go to the emergency department. His pain has been fairly mild and he denies any fevers. Discussions were made with the patient about treatment options and decision was made to proceed with laparoscopic appendectomy, possible open. Findings Laparoscopic appendectomy was performed. The appendix was somewhat tucked behind the cecum and terminal ileum and there were some adhesions of the terminal ileum to the mesoappendix. I was able to carefully take down these adhesions and eventually lift the appendix anteriorly. The base of the appendix appeared healthy and viable. There was fairly significant induration around the appendix but no clear evidence of perforation or abscess. The appendix was removed and sent to the lab for pathology. No other intra-abdominal abnormalities were noted. Description of Procedure Procedure as well as risks, benefits, and alternatives were explained to the patient. The patient agreed to proceed. Written consent was obtained and placed in chart prior to procedure. The patient was brought back to surgical suite. He was placed supine on operating table. Time-out was done to confirm the patient and procedure. The patient was then intubated by the Anesthesia Department. his abdomen was prepped and draped in sterile fashion using chlorhexidine prep. A 5 mm incision was made just to the left of the patient's umbilicus and a 5 mm Optiview trocar was advanced through the abdominal layers under direct visualization. Once inside the peritoneal cavity, carbon dioxide insufflation was used to create a pneumoperitoneum. The camera was inserted and the abdomen was inspected. No immediate abnormalities were identified. The patient was then placed in slight Trendelenburg position and rotated to the left. A 5 mm incision was made in the suprapubic region in midline and a 5 mm trocar was inserted under direct visualization. A 12 mm incision was made in the left lower quadrant and a 12 mm trocar was inserted under direct visualization. The right lower quadrant was carefully inspected. The cecum was identified and then this was traced back to the appendix. The appendix was identified and grasped at the mesoappendix and lifted anteriorly. Careful blunt dissection was carried out at the base of the appendix through the mesoappendix using a [place] grasper. An Endo-SHILPI 45 mm blue load stapler was then advanced across the base of the appendix and clamped and fired. A white reload was then clamped across the mesoappendix and fired. This freed up our appendix completely. It was then placed in an EndoCatch bag and removed through the left lower quadrant port. The staple lines were then inspected. Hemostasis appeared adequate and the staple lines appeared secure. The area was then irrigated with sterile saline. The pelvis was then carefully inspected and irrigated with sterile saline as well and the remainder of the abdomen was carefully inspected. The patient was then flattened out in bed. One final inspection was made around the abdominal cavity and no other abnormalities were seen. The left lower quadrant port was removed and a Julian-Jeri cone was used to approximate the fascia with an 0 Vicryl simple interrupted suture. The remaining ports were then removed under direct visualization. The camera was removed and the pneumoperitoneum was released. 0.5% bupivacaine with epinephrine was infiltrated locally around each of the incisions. The skin of the incisions was then approximated using 4-0 Monocryl subcuticular suture and Exofin glue was applied on top. The patient was then awakened from anesthesia, extubated, and transferred to Recovery. Estimated Blood Loss 10 Urine Output 300 Pathology Yes (Appendix) Complications No immediate complications Condition Stable Disposition Floor [facility] Billing Surgery - Charge Forward: Surgery Billing
[2024-11-09] MEDS: INSULIN ASPART (*BKC) 100 UNITS/ML SUB-Q ×2 (19:00→21:14)
[2024-11-09] MEDS: MORPHINE SULFATE (*CRX) 2 MG/ML INJ IV PUSH (20:15)
[2024-11-09] MEDS: LACTATED RINGERS 1,000 ML 100 ML IV CONT (21:05)
[2024-11-09] MEDS: INSULIN GLARGINE (*BKC) 100 UNITS/ML 10 UNITS SUB-Q (21:13)
[2024-11-09] MEDS: INSULIN ASPART (*BKC) 100 UNITS/ML 10 UNITS SUB-Q (21:13)
[2024-11-10 05:05] VITALS: BP 137/87; PULSE 82; RESP 16; TEMP 35.7; O2SAT 97
[2024-11-10] MEDS: PIPERACILLIN/TAZOBACTAM SOD 3.375 GM in SODIUM CHLORIDE 0.9% IV 50 ML 100 ML IVPB ×2 (06:03→11:39)
[2024-11-10] MEDS: HYDROcodone/acetaminophen (*CRX) 5-325 MG TABLET 1 TAB PO (06:10)
[2024-11-10 06:19] LABS: Hematocrit 39.9 % (42.0-52.0); Hemoglobin 12.5 g/dL (14.0-18.0); Mean Corpuscular HGB Conc 31.3 g/dl (32-36); Mean Corpuscular Hemoglobin 26.7 pg (26-34); Mean Corpuscular Volume 85.3 fl (80-100); Platelet Count Result 266 k/mm3 (150-375); Red Blood Count 4.68 M/mm3 (4.6-6.20); White Blood Count 8.5 K/mm3 (4.5-10.0)
[2024-11-10 06:40] LABS: Alanine Aminotransferase 13 U/L (6-50); Albumin Level 3.4 g/dL (3.5-5.1); Alkaline Phosphatase 86 U/L (38-126); Anion Gap 8 mmol/L (4-12); Aspartate Amino Transferase 21 U/L (17-59); Bilirubin,Total 0.7 mg/dL (0.2-1.3); Blood Urea Nitrogen 8 mg/dL (9-20); Calcium 9.0 mg/dL (8.4-10.2); Carbon Dioxide 25 mmol/L (22-30); Chloride 107 mmol/L (98-107); Estimated CRCL calculation 191 ml/min; Estimated Glomerular Filt Rate > 60; Glucose 148 mg/dL (65-110); Magnesium 2.0 mg/dL (1.6-2.3); Potassium 3.6 mmol/L (3.4-5.0); Sodium 140 mmol/L (137-145); Total Protein 6.6 g/dL (6.3-8.2)
[2024-11-10 07:46] VITALS: BP 139/91; PULSE 74; RESP 18; TEMP 36.6; O2SAT 98
--- NOTE | 2024-11-10 08:32 | P.PNGS_ITS ---
Progress Note: A&P Assessment and Plan (1) Acute appendicitis: Qualifiers: Acute appendicitis type: with localized peritonitis Appendicitis abscess presence: without abscess Appendicitis gangrene presence: without gangrene Appendicitis perforation presence: without perforation Qualified Code(s): K35.30 - Acute appendicitis with localized peritonitis, without perforation or gangrene Code(s): K35.80 - Unspecified acute appendicitis Status: Acute Assessment and Plan: * Doing well on POD#1. OK to discharge from surgical standpoint. * No antibiotics necessary * Discharge instructions discussed with patient. * F/U in 2 weeks. (2) Type 1 diabetes mellitus: Code(s): E10.9 - Type 1 diabetes mellitus without complications Status: Chronic (3) Morbid obesity with BMI of 50.0-59.9, adult: Code(s): E66.01 - Morbid (severe) obesity due to excess calories; Z68.43 - Body mass index [BMI] 50.0-59.9, adult Status: Chronic Subjective Subjective Date/Time Seen: 11/10/24 08:32 Interval history: Doing well today. Pain controlled. Tolerating diet. No fevers. Exam GI: Inspection: incision (intact with glue) GI Palp: Yes Soft to palpation, Yes Tenderness to palpation present (GI) (incisional) and No Guarding due to palpation present (GI) Auscultation: normal bowel sounds Objective Data Vital Signs Vital Signs: Vital Signs - 24 hr 11/09/24 14:00 11/09/24 17:00 11/09/24 17:15 Temperature 97.4 F L 98.8 F Pulse Rate 78 80 80 Respiratory Rate 18 15 19 Blood Pressure 145/88 H 135/86 132/91 H Pulse Oximetry 97 99 99 Oxygen Delivery Simple Face Mask Room Air Oxygen Flow Rate 8 11/09/24 17:30 11/09/24 17:45 11/09/24 18:49 Temperature 97.7 F 97.1 F L Pulse Rate 84 83 85 Respiratory Rate 14 14 18 Blood Pressure 143/99 H 145/97 H 143/92 H Pulse Oximetry 95 96 95 Oxygen Delivery Nasal Cannula Nasal Cannula Oxygen Flow Rate 2 2 11/09/24 19:30 11/09/24 19:55 11/09/24 20:00 Temperature 96.6 F L 97.6 F Pulse Rate 87 91 92 Respiratory Rate 18 20 18 Blood Pressure 129/90 136/96 H Pulse Oximetry 96 100 98 Oxygen Delivery Room Air Oxygen Flow Rate 11/09/24 20:30 11/09/24 21:30 11/09/24 21:33 Temperature 96.7 F L 97.5 F L Pulse Rate 92 100 Respiratory Rate 16 20 Blood Pressure 127/91 H 123/82 Pulse Oximetry 100 95 96 Oxygen Delivery Room Air Oxygen Flow Rate 11/09/24 23:46 11/10/24 05:05 11/10/24 07:46 Temperature 97 F L 96.3 F L 97.9 F Pulse Rate 92 82 74 Respiratory Rate 18 16 18 Blood Pressure 154/95 H 137/87 139/91 H Pulse Oximetry 98 97 98 Oxygen Delivery Oxygen Flow Rate Intake/Output Intake/Output: Intake & Output 11/07/24 11/08/24 11/09/24 11/10/24 23:59 23:59 23:59 23:59 Intake Total 1200 1258 350 Output Total 300 Balance 1200 958 350 Meds/Results Medications: Active Medications Generic Name Dose Route Start Last Admin Trade Name Freq PRN Reason Stop Dose Admin Acetaminophen 650 mg 11/08/24 17:26 Acetaminophen 325 Mg Tablet PO Q4H PRN Mild Pain (1-3) or Fever Hydrocodone Bitart/Acetaminophen 1 tab 11/09/24 18:01 11/10/24 06:10 Hydrocodone/Acetaminophen (*Crx) 5-325 Mg Tablet PO 1 tab Q4H PRN Administration Pain Rated 4-6 Hydrocodone Bitart/Acetaminophen 1 tab 11/09/24 18:01 Hydrocodone/Acetaminophen (*Crx) 10-325 Mg Tablet PO Q4H PRN Pain Rated 7-10 Buspirone HCl 10 mg 11/09/24 09:00 11/09/24 18:56 Buspirone Hcl 10 Mg Tablet PO Not Given BID ALEXANDRA Chlorthalidone 25 mg 11/09/24 09:00 11/09/24 10:06 Chlorthalidone 25 Mg Tablet PO 25 mg DAILY ALEXANDRA Administration Citalopram Hydrobromide 40 mg 11/09/24 09:00 11/09/24 10:06 Citalopram Hydrobromide 20 Mg Tablet PO 40 mg DAILY ALEXANDRA Administration Dextrose 12.5 gm 11/08/24 17:26 Dextrose 50% 25 Gm/50 Ml Syringe IV PUSH PRN PRN Hypoglycemia Protocol Docusate Sodium 100 mg 11/09/24 09:00 11/09/24 18:57 Docusate Sodium 100 Mg Capsule PO Not Given BID [facility] Enoxaparin Sodium 40 mg 11/10/24 09:00 Enoxaparin 40 Mg/0.4 Ml Syringe SUB-Q DAILY [facility] Glucagon 1 mg 11/08/24 17:26 Glucagon For Inj 1 Mg Vial IM PRN PRN Hypoglycemia Protocol Glucose 15 gm 11/08/24 17:26 Glucose Oral Gel 15 Gm Of Glucse In 37.5 Gm Tube PO PRN PRN Hypoglycemia Protocol Hydralazine HCl 10 mg 11/08/24 19:16 Hydralazine Hcl 20 Mg/Ml Vial IV PUSH Q8H PRN Blood Pressure - High Piperacillin Sod/Tazobactam 50 mls @ 100 mls/hr 11/09/24 00:00 11/10/24 06:03 Sod 3.375 gm/ Sodium Chloride IVPB 100 mls/hr Q6H ALEXANDRA Administration Dextrose 1,000 mls @ 100 mls/hr 11/08/24 17:26 Dextrose 5% 1,000 Ml IVPB PRN PRN Hypoglycemia Protocol Ibuprofen 800 mg in 200 mls @ 400 mls/hr 11/09/24 18:01 Caldolor 800 Mg/200 Ml IVPB Q6H PRN Breakthrough Pain Rated 1-3 or NPO Insulin Aspart 4 - 8 units 11/09/24 21:05 11/10/24 08:28 Insulin Aspart (*Bkc) 100 Units/Ml SUB-Q Not Given 0800,1200,1700,2100 [facility] Protocol Insulin Glargine 55 units 11/08/24 22:40 11/09/24 21:13 Insulin Glargine (*Bkc) 100 Units/Ml 0.3 units/kg (55 units) 55 units SUB-Q Administration HS [facility] Lisinopril 30 mg 11/09/24 09:00 11/09/24 10:06 Lisinopril 10 Mg Tablet PO 30 mg DAILY ALEXANDRA Administration Lovastatin 40 mg 11/09/24 09:00 11/09/24 10:06 Lovastatin 20 Mg Tablet PO 40 mg DAILY ALEXANDRA Administration Morphine Sulfate 2 mg 11/09/24 18:01 11/09/24 20:15 Morphine Sulfate (*Crx) 2 Mg/Ml Inj IV PUSH 2 mg Q2H PRN Administration Breakthrough Pain Rated 4-6 or NPO Morphine Sulfate 4 mg 11/09/24 18:01 Morphine Sulfate (*Crx) 4 Mg/Ml Inj IV PUSH Q2H PRN Breakthrough Pain Rated 7-10 or NPO Naloxone HCl 0.1 mg 11/09/24 18:01 Naloxone Hcl 0.4 Mg/Ml Vial IV PUSH Q2M PRN Opiate Reversal Ondansetron HCl 4 mg 11/08/24 17:26 Ondansetron Inj 4 Mg/2 Ml Vial IV PUSH Q4H PRN Nausea Radiology Results: ITS Impressions Chest X-Ray 11/08/24 18:13 IMPRESSION: No acute cardiopulmonary process. Labs Labs: Laboratory Results - last 24 hr 11/09/24 11/09/24 11/09/24 11:16 14:14 15:25 WBC RBC Hgb Hct MCV MCH MCHC RDW Plt Count MPV Sodium Potassium Chloride Carbon Dioxide Anion Gap BUN Creatinine Estim Creat Clear Calc Estimated GFR Glucose POC Capillary Glucose 254 H 311 H 318 H Calcium Magnesium Total Bilirubin AST ALT Alkaline Phosphatase Total Protein Albumin 11/09/24 11/09/24 11/09/24 17:10 18:46 20:32 WBC RBC Hgb Hct MCV MCH MCHC RDW Plt Count MPV Sodium Potassium Chloride Carbon Dioxide Anion Gap BUN Creatinine Estim Creat Clear Calc Estimated GFR Glucose POC Capillary Glucose 282 H 295 H 235 H Calcium Magnesium Total Bilirubin AST ALT Alkaline Phosphatase Total Protein Albumin 11/10/24 11/10/24 05:42 07:52 WBC 8.5 RBC 4.68 Hgb 12.5 L Hct 39.9 L MCV 85.3 MCH 26.7 MCHC 31.3 L RDW 12.9 Plt Count 266 MPV 9.8 Sodium 140 Potassium 3.6 Chloride 107 Carbon Dioxide 25 Anion Gap 8 BUN 8 L Creatinine 0.87 Estim Creat Clear Calc 191 Estimated GFR > 60 Glucose 148 H POC Capillary Glucose 134 H Calcium 9.0 Magnesium 2.0 Total Bilirubin 0.7 AST 21 ALT 13 Alkaline Phosphatase 86 Total Protein 6.6 Albumin 3.4 L
[2024-11-10] MEDS: LOVASTATIN 20 MG TABLET 40 MG PO (08:35)
[2024-11-10] MEDS: CITALOPRAM HYDROBROMIDE 20 MG TABLET 40 MG PO (08:35)
[2024-11-10] MEDS: DOCUSATE SODIUM 100 MG CAPSULE PO (08:36)
[2024-11-10] MEDS: ENOXAPARIN 40 MG/0.4 ML SYRINGE SUB-Q (08:36)
[2024-11-10] MEDS: CHLORTHALIDONE 25 MG TABLET PO (08:38)
[2024-11-10] MEDS: INSULIN ASPART (*BKC) 100 UNITS/ML SUB-Q (11:39)
[2024-11-10 11:46] VITALS: BP 131/87; PULSE 79; RESP 18; TEMP 36.6; O2SAT 96
--- NOTE | 2024-11-10 12:37 | WPDANESPN ---
Anes - Prog Note Post-Op Date/Time: 11/10/24 12:37 Cardiovascular status: normal Respiratory status: normal Airway patency: baseline Mental status: baseline Post-Op hydration status: normal Vital Signs: Last Vital Signs Temp 36.6 C 11/10/24 11:46 Pulse 79 11/10/24 11:46 Resp 18 11/10/24 11:46 BP 131/87 11/10/24 11:46 Pulse Ox 96 11/10/24 11:46 O2 Del Method Room Air 11/10/24 08:35 O2 Flow Rate 2 11/09/24 17:45 Pain Score (VAS): 2 I/O: Intake & Output 11/09/24 11/10/24 11/10/24 23:59 07:59 15:59 Intake Total 250 400 240 Output Total 300 Balance -50 400 240 Laboratory Tests 11/10/24 05:42 11/10/24 05:42 11/09/24 11/09/24 11/09/24 14:14 15:25 17:10 WBC RBC Hgb Hct MCV MCH MCHC RDW Plt Count MPV Sodium Potassium Chloride Carbon Dioxide Anion Gap BUN Creatinine Estim Creat Clear Calc Estimated GFR Glucose POC Capillary Glucose 311 H 318 H 282 H Calcium Magnesium Total Bilirubin AST ALT Alkaline Phosphatase Total Protein Albumin 11/09/24 11/09/24 11/10/24 18:46 20:32 05:42 WBC 8.5 RBC 4.68 Hgb 12.5 L Hct 39.9 L MCV 85.3 MCH 26.7 MCHC 31.3 L RDW 12.9 Plt Count 266 MPV 9.8 Sodium 140 Potassium 3.6 Chloride 107 Carbon Dioxide 25 Anion Gap 8 BUN 8 L Creatinine 0.87 Estim Creat Clear Calc 191 Estimated GFR > 60 Glucose 148 H POC Capillary Glucose 295 H 235 H Calcium 9.0 Magnesium 2.0 Total Bilirubin 0.7 AST 21 ALT 13 Alkaline Phosphatase 86 Total Protein 6.6 Albumin 3.4 L 11/10/24 11/10/24 07:52 11:32 WBC RBC Hgb Hct MCV MCH MCHC RDW Plt Count MPV Sodium Potassium Chloride Carbon Dioxide Anion Gap BUN Creatinine Estim Creat Clear Calc Estimated GFR Glucose POC Capillary Glucose 134 H 362 H Calcium Magnesium Total Bilirubin AST ALT Alkaline Phosphatase Total Protein Albumin Post-procedural complaints: none Patient Feedback: Patient satisfied with anesthetic care.
--- NOTE | 2024-11-10 12:51 | P.DS_ITS ---
DS: Admitting Diagnosis Discharge Date 11/10/24 Admitting Diagnosis Appendicitis DS: Discharge Diagnosis Discharge Diagnosis (1) Acute appendicitis: Qualifiers: Acute appendicitis type: with localized peritonitis Appendicitis abscess presence: without abscess Appendicitis gangrene presence: without gangrene Appendicitis perforation presence: without perforation Qualified Code(s): K35.30 - Acute appendicitis with localized peritonitis, without perforation or gangrene Code(s): K35.80 - Unspecified acute appendicitis Status: Acute Assessment and Plan: On outside CT Surgery consulted plan for OR tomorrow Clear liquid diet now and NPO midnight IVF for hydration IV Zosyn A.m. labs Chest x-ray no acute process EKG pending Last does infection on on October 31 (2) Obesity: Code(s): E66.9 - Obesity, unspecified Status: Acute Assessment and Plan: Patient's last doses of Ozempic was on October 31 (3) Type 1 diabetic ketoacidosis with coma: Code(s): E10.11 - Type 1 diabetes mellitus with ketoacidosis with coma Status: Deleted Assessment and Plan: At home patient takes 60 units of Lantus, and 1 unit of aspart for every 5 carbs which equals about 80 units a day 55 units of Lantus Q 6 hour Accu-Cheks High-dose sliding scale while NPO (4) Hypertension: Code(s): I10 - Essential (primary) hypertension Status: Acute Assessment and Plan: Continue lisinopril (5) Hyperlipidemia: Code(s): E78.5 - Hyperlipidemia, unspecified Status: Acute Assessment and Plan: Continue statin (6) Depression: Code(s): F32.A - Depression, unspecified Status: Acute Assessment and Plan: Continue citalopram and buspirone Plan patient is seen by surgery service and patient is scheduled for appendectomy later today, stats feeling, pain is control, will follow up after the surgery and will plan. DS: Summary Hospital Course Hospital Course: Patient had appendectomy on 11/09/24 stats feels better, able to tolerate his diet, seen by his surgeon, stable, will discharge today, to follow up with his surgeon as scheduled. Time Spent with Patient Time attestation: Total time spent providing and/or coordinating discharge services: Exam Narrative: Morbidly obese Patient is comfortable, NAD HEENT: eyes are clear and none icteric LUNGS:CTA HEART: RR S1S2 ABD: BS+, Soft and nontender Lower extremities: no edema SKIN: nonjaundiced Neuro: grossly intact. DS: Data Data Completed and Pending Pending studies at discharge: Pending at discharge 11/09/24 16:37 Surgical [PTH] Routine Labs on day of discharge: Labs from last 24 hours 11/10/24 11/10/24 11/10/24 11:32 07:52 05:42 WBC 8.5 RBC 4.68 Hgb 12.5 L Hct 39.9 L MCV 85.3 MCH 26.7 MCHC 31.3 L RDW 12.9 Plt Count 266 MPV 9.8 Sodium 140 Potassium 3.6 Chloride 107 Carbon Dioxide 25 Anion Gap 8 BUN 8 L Creatinine 0.87 Estim Creat Clear Calc 191 Estimated GFR > 60 Glucose 148 H POC Capillary Glucose 362 H 134 H Calcium 9.0 Magnesium 2.0 Total Bilirubin 0.7 AST 21 ALT 13 Alkaline Phosphatase 86 Total Protein 6.6 Albumin 3.4 L 11/09/24 11/09/24 11/09/24 20:32 18:46 17:10 WBC RBC Hgb Hct MCV MCH MCHC RDW Plt Count MPV Sodium Potassium Chloride Carbon Dioxide Anion Gap BUN Creatinine Estim Creat Clear Calc Estimated GFR Glucose POC Capillary Glucose 235 H 295 H 282 H Calcium Magnesium Total Bilirubin AST ALT Alkaline Phosphatase Total Protein Albumin 11/09/24 11/09/24 15:25 14:14 WBC RBC Hgb Hct MCV MCH MCHC RDW Plt Count MPV Sodium Potassium Chloride Carbon Dioxide Anion Gap BUN Creatinine Estim Creat Clear Calc Estimated GFR Glucose POC Capillary Glucose 318 H 311 H Calcium Magnesium Total Bilirubin AST ALT Alkaline Phosphatase Total Protein Albumin Discharge Plan Discharge Attending physician on discharge: Tyra Vieira Consulting providers: Ankit Choi; Annalise Ridley; Sera Jacobson; Daisha Ko; Mauricio Daniel; Benji Donald; Cy Carrington; Toni Alba Discharging Clinician: Tyra Vieira Patient Disposition: Home Activity: other - see discharge instructions Diet: diabetic Wound Care Instructions: other - see discharge instructions Discharge Instructions: DISCHARGE INSTRUCTION SHEET FOR HERNIA, GALLBLADDER AND APPENDIX SURGERIES DR. CHOI PATIENT TO TAKE HOME 1. May shower, no soaking in bath x 2weeks. 2. Call office for: * Wound increasingly painful or bleeding * Vomiting * Fever of greater than 101 degrees 3. If no bowel movement for three days, take 1 oz. (30 ml) Milk of Magnesia or MiraLax 17g 1 to 2 times daily. 4. No heavy lifting > 10-15 pounds x 2 weeks for laparoscopic cholecystectomy or appendectomy. 5. No driving for 3 days or while taking narcotic pain medications. 6. Ice to surgical site for 48 hours (30 min on, then 30 min off). 7. Up walking 10-30 minutes three times per day. 8. Resume previous home medications. 9. Follow-up 10-14 days in office for wound check or as previously scheduled. ([phone]) 10. Oral pain medications prescription to be sent to pharmacy. Take Tylenol 500mg every 6 hours and Ibuprofen 600mg every 6 hours for the first 2 days, then as needed. 11. NUTRITION: Start out by drinking fluids and increase your diet as tolerated. If you experience nausea, try dry toast, crackers, and 7-UP. If nausea or vomiting persists, contact your surgeon?s office. 12. Gallbladders-Low Fat Diet for 2 weeks (send care note of low fat diet) 13. Inguinal Hernias-wear scrotal support for 48 hours 14. Abdominal Hernias-if sent home with abdominal binder, wear for the first 2 weeks (may remove to shower or at night to sleep). patient to follow discharge care instruction from his surgeon and follow up as scheduled. patient to follow up with his primary care provider as soon as possible, patient is instructed if any symptoms redevelop to go to nearest ER. Revised August 2018 Patient Instructions: Antibiotic Form Patient Language: Belarusian Stand Alone Forms: General Discharge Information Follow-up/Referrals: Griselda,LEONEL Glez [Primary Care Provider] - Ankit Choi DO [Physician] - 2 Weeks Discharge Medications: New hydrocodone-acetaminophen 5-325 mg tablet 1 tablet PO Q4H PRN (Reason: pain) Qty: 10 0RF Continued buspirone 10 mg tablet 10 mg PO .Twice Daily chlorthalidone 25 mg tablet 25 mg PO DAILY citalopram 40 mg tablet 40 mg PO DAILY ergocalciferol (vitamin D2) 1,250 mcg (50,000 unit) capsule 1,250 mcg PO WEEKLY insulin aspart U-100 [Novolog U-100 Insulin aspart] 100 unit/mL solution 80 unit subcut AC Rx Instructions: 80-90units, slide 1u per 5 carbs, 15u per 100 over insulin glargine-yfgn 100 unit/mL (3 mL) insulin pen 60 unit SUBCUT QPM Rx Instructions: 60u lisinopril 30 mg tablet 30 mg PO DAILY lovastatin 40 mg tablet 40 mg PO DAILY (DME) pen needle, diabetic [TRUEplus Pen Needle] 31 gauge x 1/4 needle MISCELLANEOUS Date of admission: 11/08/24 17:26 Primary Care Provider: RamiroNewton Admitting Provider: Tyra Vieira Attending physician on admission: Tyra Vieira Condition: Improved
[2024-11-10] MEDS: INSULIN ASPART (*BKC) 100 UNITS/ML 12 UNITS SUB-Q (12:54)
== END 2024-11-10 13:50 | disposition home or self-care (01) ==
LOC: ANHED 17:40 → ANH3MEDSUR 17:58
PROVIDERS: Nurse Practitioner Gerontology; Surgery; Admitting Provider Family Medicine; Emergency Provider Physician Assistant; PCP Registered Nurse; Visit Provider Family Medicine
PROC: 0DTJ4ZZ Resection of Appendix, Percutaneous Endoscopic Approach (ICD-10-PCS; CPT 44970; principal; 2024-11-09 15:30)
DX: K35.80 Unspecified acute appendicitis (principal); E10.9 Type 1 diabetes mellitus without complications; K90.0 Celiac disease; I10 Essential (primary) hypertension; E78.5 Hyperlipidemia, unspecified; F32.A Depression, unspecified; E66.01 Morbid (severe) obesity due to excess calories; Z68.43 Body mass index [BMI] 50.0-59.9, adult; Z79.4 Long term (current) use of insulin; Z79.899 Other long term (current) drug therapy
CPT/HCPCS: 44970; 36415; 71045; 80048; 80053; 82948; 83605; 83690; 83735; 85025; 85027; 88304; 93005; 96365; 96375; 99285; A9270; G0378; J1171; J1650; J1815; J2003; J2250; J2270; J2405; J2543; J2704; J3010; J3480; J7030; J7040; J7042; J7120